=== PATIENT | male | born 1965 | race Caucasian/White ===

== ENCOUNTER 2018-10-31 18:30 | Emergency (ER) | payer MEDICAID, SELFPAY ==
[2018-10-31 18:31] VITALS: BP 158/100; PULSE 99; RESP 16; TEMP 37.1; O2SAT 97; BMI 27.3
--- NOTE | 2018-10-31 18:47 | CT_ITS ---
STUDY: CT ABDOMEN AND PELVIS WITHOUT CONTRAST REASON FOR EXAM: Male, 52 years old. Left lower quadrant pain x2 days RADIATION DOSAGE (If Supplied By Facility): CTDIvol = ( 14.40 ) mGy, DLP = ( 684.97 ) mGycm TECHNIQUE: Transaxial images were obtained from the dome of the diaphragm to the symphysis pubis without oral contrast, and without intravenous contrast. Sagittal and coronal images were reconstructed. Individualized dose optimization techniques were used for this CT. COMPARISON: None. FINDINGS: There are mild fibrotic and/or atelectatic changes of the right lung base. The visualized portions of the heart are within normal limits. Normal liver. The gallbladder is contracted. Normal spleen. Normal pancreas. Normal bilateral adrenal glands. Normal right kidney. Normal left kidney. Normal visualized stomach. Normal small intestine. There is mild sigmoid diverticulosis. There is wall thickening of the proximal sigmoid. There is perisigmoidal fatty stranding consistent with diverticulitis. No abnormal fluid collection or extraluminal gas is seen in the region. The appendix is visualized and appears normal. Normal abdominal aorta. Normal inferior vena cava. Normal retroperitoneum. Normal urinary bladder. Prostatic calcifications are present. There is a small umbilical hernia containing fat. Normal osseous structures. CT/Abdomen/Pelvis without Cont IMPRESSION: Mild sigmoid diverticulosis. Wall thickening of the proximal sigmoid. Perisigmoidal fatty stranding consistent with diverticulitis. There is no evidence of abnormal fluid collection or extraluminal gas in the region. Mild fibrotic and/or atelectatic changes of the right lung base. Contracted gallbladder. Prostatic calcifications are present. There is a small fat-containing umbilical hernia. Electronically Signed: Ted Romero MD at 19:42 EDT , Service support ,
[2018-10-31] MEDS: 0.9% Normal Saline 1,000 ML 125 ML IV (19:02)
[2018-10-31 19:10] LABS: Absolute Lymphocyte Count 2.05 X10^3/ul (0.83-4.51); Absolute Neutrophil Count 9.5 X10^3/uL (2.0-7.7); Basophil# 0.03 X10^3/uL; Basophil% 0.2 % (0-1); Eosinophil# 0.23 X10^3/uL; Eosinophils% 1.8 % (0-5); Hematocrit 45.9 % (40-54); Hemoglobin 15.6 g/dl (13.0-16.5); Lymphocyte # 2.05 X10^3/ul (4.0); Lymphocyte % 15.8 % (19-41); Mean Corpuscular Hgb 30.1 pg (27.0-32.0); Mean Corpuscular Volume 88.6 fL (80-94); Mean Platelet Vol. 10.8 fl (6.2-12.0); Monocyte# 1.12 X10^3/uL; Monocyte% 8.6 % (0-10); Neutrophil % 73.2 % (47-70); Platelet Count 140 K/mm3 (150-450); RBC Distribution Width CV 13.5 % (11.6-14.6); Red Blood Count 5.18 M/mm3 (4.6-6.2)
[2018-10-31 19:11] LABS: POSITIVE COUNT NO; POSITIVE DIFFERENTIAL NO; POSITIVE MORPHOLOGY NO
[2018-10-31 19:25] LABS: Anion Gap 5 (5-15); BUN 10 mg/dL (7-18); BUN/Creat Ratio 11.1 RATIO (10-20); Calcium,Total 8.4 mg/dL (8.5-10.1); Chloride 105 mmol/L (98-107); EST Glomerular Filtration Rate 95 mL/min (>60); Est Glom Filt Rate - Afr Amer 115 mL/min (>60); Estimated Creatinine Clearance 104.58 ml/min; Glucose 155 mg/dL (74-106); Sodium Level 138 mmol/L (136-145)
[2018-10-31 19:56] LABS: Bacteria 0 SEEN /hpf (None Seen); Mucous, Urine 0 SEEN /hpf (<or=2+)
[2018-10-31 19:58] LABS: Color, Urine Yellow (Yellow); Glucose, Dipstick Normal (Normal); Ketone-Dipstick Negative (Negative); Leukocyte Esterase-Dipstick 25 /ul (Negative); Nitrite-Dipstick Negative (Negative); Occult Blood-Urine 10 /ul (Negative); Protein-Dipstick 15 mg/dl (Negative); Specific Gravity, Urine 1.015 (1.002-1.030); Urine Bilirubin Dipstick Negative (Negative); Urine Clarity Sl. Cloudy (Clear); Urine Urobilinogen 1 mg/dl (Normal)
[2018-10-31 20:07] LABS: Red Blood Cells-Urine 0-5 SEEN /hpf (0-5); Squamous Epithelial Cells - UA 0-5 SEEN /hpf (0-5); White Blood Cells 0-5 SEEN /hpf (0-5)
--- NOTE | 2018-10-31 20:52 | ED.DCSUM_ITS ---
- ER Visit Summary Date of Service: 10/31/18 Chief Complaint: [Abdominal pain] History of Present Illness: The patient is a 52 M [presents to the emergency department with abdominal pain that started yesterday. Patient states he currently came on gradually. Patient describes it as lower left abdomen. He has had no nausea or vomiting. No diarrhea. Denies any blood in stool or black tarry stool. Patient has not had any fevers. His last bowel movement was earlier today. Patient has history of hypertension but has been noncompliant with medications.] Physical Examination: HEENT-PERRLA, EOMI. Cranial nerves II through XII grossly intact. TMs clear. Mucous membranes moist. No adenopathy. Cardiovascular-regular rate and rhythm without murmur or ectopy Lungs-clear to auscultation, chest wall stable without crepitus or subcu emphysema Abdomen-normoactive bowel sounds, soft. Patient has tenderness over the left lower quadrant with some guarding. There is no rebound, rigidity, cranial signs. Extremities-intact ?4, normal range of motion, normal pulses, atraumatic [] Test Results: [CBC with differential obtained showed a white count of 13, hemoglobin 15.6, hematocrit 45, platelets 140. Chemistries unremarkable. Glucose was 155. Urinalysis was normal. CT flank showed mild sigmoid diverticulitis. No evidence of abscess or perforation.] Emergency Department Course and Treatment: [Patient was medicated with Cipro and Flagyl. He did not want anything for pain.] Treatment Plan: [She will be referred to primary care physician senior process control tech for no doc. Patient will be started Cipro and Flagyl. Patient advised to return if worsening pain, fever, rectal bleeding, or conditions worsen anyway.] Disposition: [Discharged home in stable condition.] Impression: [Acute diverticulitis] This note was generated with [employer] dictation software. It may contain incorrect words, spelling, and punctuation that were not noted in review of the chart prior to signing ED Disposition - Plan for ED Patient: Referrals: Care Physician,No Primary [Primary Care Provider] -
--- NOTE | 2018-10-31 20:54 | ED.DEP ---
ED Disposition - Plan for ED Patient: Instructions: Diverticulitis Prescriptions: Ciprofloxacin [Cipro] 500 mg PO BID #20 tab Prescription Printed metroNIDAZOLE [Flagyl] 500 mg PO Q8H #30 tab Prescription Printed Referrals: Care Physician,Ricarda Primary [Primary Care Provider] - Jeremiah Crowley DO [STAFF PHYSICIAN] - 5-7 Days
[2018-10-31] MEDS: metroNIDAZOLE 500 MG Tablet PO (21:10)
[2018-10-31] MEDS: Ciprofloxacin 250 MG Tablet 500 MG PO (21:10)
[2018-10-31 21:23] VITALS: BP 171/91; PULSE 78; RESP 16; O2SAT 98
== END 2018-10-31 21:24 | disposition home or self-care (01) ==
LOC: ED 19:26
PROVIDERS: Emergency Provider Emergency Medicine
DX: K57.32 Diverticulitis of large intestine without perforation or abscess without bleeding (principal); I10 Essential (primary) hypertension; Z91.14 Patient's other noncompliance with medication regimen; Z72.0 Tobacco use
CPT/HCPCS: 74176; 80048; 81001; 85025; 96360; 96361; 99283; J7030; A4216

== ENCOUNTER 2019-06-17 06:38 | Emergency (ER) | payer MEDICAID, SELFPAY ==
[2019-06-17 06:39] VITALS: BP 195/100; PULSE 75; RESP 16; TEMP 36.5; O2SAT 98
--- NOTE | 2019-06-17 06:54 | ED.DCSUM_ITS ---
- ER Visit Summary Date of Service: 06/17/19 Chief Complaint: Left heel pain History of Present Illness: The patient is a 53 M who presents with pain in his left heel that has been getting progressively worse over the past 4 days. Patient describes the pain is sharp. Patient states the pain began rather s uddenly while he was walking. Patient denies any cracking or popping sensation. Patient denies any paresthesias or weakness. Patient states pain is worse with weightbearing and ambulation. Patient states he has been taking [id number] Advil with no improvement. Patient has not been using any ice but has been keeping his leg elevated. Physical Examination: Vital signs are stable except for an elevated blood pressure of 195/100. Patient is afebrile. Patient is in no acute distress. Musculoskeletal exam reveals tenderness over the plantar aspect of the left heel . There is no edema or ecchymosis. There is no erythema or warmth. There is no tenderness over the plantar fascia. There is no tenderness over the calcaneus. Achilles tendon is intact. Pedal pulses are equal bilaterally. Sensation was intact light touch in all digits. Capillary refill was less than 2 seconds in all digits. Range of motion was slightly limited in dorsiflexion of the ankle secondary to pain. Emergency Department Course and Treatment: I discussed with the patient that I do not feel x-rays are necessary at this time since there is no direct trauma or injury. Patient was instructed to stop taking the Advil. Patient was given a prescription for Naprosyn. Patient was instructed to use ice to the foot and ankle. Patient was instructed to keep the foot and ankle elevated. Patient was instructed to follow-up with a primary care physician. Patient was referred to Dr. Saucedo who is next for unassigned patients. Patient was advised that he does need to be taking his blood pressure medication with his elevated blood pressure. Patient understands and is agreeable with the plan. All questions were answered. Disposition: Discharge home Impression: Left heel pain This note was generated with [employer] dictation software. It may contain incorrect words, spelling, and punctuation that were not noted in review of the chart prior to signing ED Disposition - Plan for ED Patient: Disposition: Home or Assisted Living Diagnosis: Pain of left heel Instructions: Understanding Heel Pain, Plantar Fasciitis Prescriptions: Naproxen [Naprosyn] 500 mg PO BID PRN #20 tab Prescription Printed Referrals: Care Physician,No Primary [Primary Care Provider] - Soila Saucedo MD [STAFF PHYSICIAN] - 5-7 Days
== END 2019-06-17 07:26 | disposition home or self-care (01) ==
PROVIDERS: Emergency Provider Emergency Medicine
DX: M79.672 Pain in left foot (principal); F17.200 Nicotine dependence, unspecified, uncomplicated
CPT/HCPCS: 99282

== ENCOUNTER 2022-06-01 14:29 | Inpatient (IN) | payer MEDICAID, SELFPAY ==
[2022-06-01] VITALS (20 sets, daily range): BP systolic 90–143; BP diastolic 65–116; PULSE 58–116; RESP 14–28; TEMP 35.7–36.8; O2SAT 92–98; BMI 26.9
--- NOTE | 2022-06-01 14:35 | EKG12_ITS ---
Test Reason : CP Blood Pressure : / mmHG Vent. Rate : 055 BPM Atrial Rate : 055 BPM P-R Int : 140 ms QRS Dur : 122 ms QT Int : 410 ms P-R-T Axes : 075 -41 -33 degrees QTc Int : 392 ms Sinus bradycardia Left axis deviation Non-specific intra-ventricular conduction delay ST elevation consider anterolateral injury or acute infarct ACUTE IA / STEMI Abnormal ECG Confirmed by JOSEFINA NAM, MANUEL ([id number]), food editor ANTONINA BUI ([id number]) on 06/03/2022 8:50:28 AM Referred By: Skyler Hahn Confirmed By:LEE HAHN MD
--- NOTE | 2022-06-01 14:35 | NURSING ---
STEMI CALLED [id number]
[2022-06-01] MEDS: Heparin Injection (Vial) 5,000 UNIT/ML VIAL 4000 UNIT IV (14:38)
[2022-06-01] MEDS: TICAGRELOR 90 MG TABLET 180 MG PO (14:38)
--- NOTE | 2022-06-01 14:42 | ED.VIS.CHEST ---
HPI History of Present Illness Chief Complaint: Chest Pain Detail of Chief Complaint: Patient present with chest pain that started prior to arrival in the emerge Informant: patient Onset/Context/Timing Current Severity: Severe Narrative Narrative: Patient presents with chest discomfort as her prior arrival to emergency department. Patient states that he was working when he developed left-sided chest pressure radiating into his abdomen. He feels short of breath. He drove himself to the hospital and then collapsed in triage. They brought him to room 16 I was asked to see him emergently. On arrival he complains of feeling dyspneic with continued chest pain. He is never had symptoms like this before. He has history of hypertension. No recent travel or surgery. No prior heart history. Prior Similar Symptoms: No CVD Risk Factors: Positive for Hypertension PFSH PFSH Home Medications naproxen 500 mg tablet 500 mg PO BID PRN #20 tabs 06/17/19 [Rx Last Taken Unknown] Allergy/AdvReac Type Severity Reaction Status Date / Time Penicillins Allergy Swelling Verified 06/01/22 14:30 Social History Smoking Status: Current every day smoker ROS ROS ED ROS Narrative Sweaty and diaphoretic Review of Systems ROS Unobtainable: other Constitutional Constitutional ED: Reports lethargy; Denies chills, fever(s), sweats or weight loss Eyes Eyes: Denies blurry vision, change in vision or diplopia ENT ENT ED: Denies rhinorrhea or sore throat Cardiovascular Cardiovascular: Reports chest pain; Denies orthopnea or racing heartbeat Respiratory/Chest Respiratory/Chest: Reports dyspnea and dyspnea on exertion; Denies cough, orthopnea or sputum Gastrointestinal Gastrointestinal: Reports nausea; Denies abdominal pain, diarrhea or vomiting Genitourinary Genitourinary ED: Denies dysuria, hematuria or urinary frequency Musculoskeletal Musculoskeletal: Denies arthralgias, back pain, myalgias or neck pain Integumentary Denies abscess, Abrasions or rash Neurologic Neurologic: Denies headache(s) or weakness Psychiatric Psychiatric: Denies anxiety, depression or suicidal thoughts Endocrine Endocrinology: Denies polydipsia, polyphagia or polyuria Hematologic/Lymphatic Hematologic/Lymphatic: Denies easy bleeding, easy bruising or lymphadenopathy Allergic/Immunologic Allergic/Immunologic ED: Denies mouth swelling, tongue swelling or urticaria EXAM Physical Exam Narrative Exam Narrative: Patient pale and diaphoretic. Const Vital Signs: 06/01/22 14:31 06/01/22 14:38 Temperature 96.2 F L Temperature Source Temporal Pulse Rate 58 L Respiratory Rate 16 28 H Blood Pressure 143/116 H 143/116 H Blood Pressure Mean 125 Pulse Ox 92 Oxygen Delivery Method Non-Rebreather Positive well nourished and well developed General Appearance ED: well developed and NAD HEENT Reports TM's clear and moist mucous membranes normocephalic and atraumatic; Negative for trauma or tenderness Tympanic Membrane ED: Yes TM's clear Eyes PERRL and EOMs intact bilaterally General Eye ED: Negative for pale conjunctiva or scleral icterus Neck no lymphadenopathy, supple and no JVD General: Negative for tenderness Chest Wall inspection of chest normal and palpation of chest normal Chest: Negative for tenderness Resp normal respiratory effort and clear to auscultation bilaterally Effort and Inspection: Negative for respiratory distress or pain with movement Auscultation: Negative for rhonchi, wheezes or diminished lung sounds Cardio regular rate, regular rhythm, S1 normal heart sound, S2 normal heart sound and no murmurs Peripheral Pulses: pulses 2+ throughout GI normal to inspection, nondistended, normoactive bowel sounds, soft to palpation, non-tender, non-distended and no masses Back/Spine no CVA tenderness and no thoracic nor lumbar tenderness Extremity normal to inspection General Extremety ED: Negative for edema General Extremity: Negative for edema Neuro oriented x3, CN's II-XII intact bilaterally, no sensory deficits noted and gait normal Sensorium / Orientation: awake, alert, oriented to person, oriented to place and oriented to time Motor Exam: strength 5/5 throughout and strength abnormal Psych mental status grossly normal Skin no rashes or lesions noted and no wounds MDM MDM MDM Narrative Medical decision making narrative: On arrival patient placed on panel monitor placed on oxygen. 2 IVs were started. EKG was immediately obtained which showed an acute ST elevation RI with ST elevation in leads V2 and V3 as well as V4 with reciprocal changes in the inferior leads. I immediately called a STEMI alert and discussed case with general labor who will take patient emergently to the [facility] Director. We ordered aspirin and heparin as well as Brilinta. Patient was given Zofran for nausea and vomiting. I also discussed case with hospitalist who will be consulted on the case as well. Critical Care Time Critical care time (excluding procedures): Including time spent:, Discussing w/Patient &/or Family/Electrical And Instrument Technician, Discussing w/Consultants, Arranging Admission or Transfer and - (10 minutes) Discharge Plan Triage Chief Complaint: Chest Pain ED Provider: Lakhwinder Triplett Dx/Rx/DC Orders Clinical Impression: Acute ST elevation myocardial infarction, History of hypertension Prescriptions: No Action naproxen 500 MG tablet 500 mg PO BID PRN Qty: 20 0RF Primary Care Provider: Care Physician,No Primary Referrals: Care Physician,No Primary [Primary Care Provider] - Disposition Disposition: Acute Care Hospital [facility]
[2022-06-01 14:50] LABS: Absolute Lymphocyte Count 4.51 X10^3/uL (0.83-4.51); Absolute Neutrophil Count 6.4 X10^3/uL (2.0-7.7); Basophil# 0.06 X10^3/uL; Basophil% 0.5 % (0-1); Eosinophil# 0.36 X10^3/uL; Eosinophils% 2.9 % (0-5); Hematocrit 46.4 % (40-54); Hemoglobin 15.1 g/dL (13.0-16.5); Lymphocyte # 4.51 X10^3/ul (0.83-4.51); Lymphocyte % 36.8 % (19-41); Mean Corp Hgb Conc 32.5 g/dL (32-36); Mean Corpuscular Volume 92.2 fL (80-94); Mean Platelet Vol. 10.7 fl (6.2-12.0); Monocyte# 0.83 X10^3/uL; Monocyte% 6.8 % (0-10); NRBC Flagged by Analyzer 0 % (0-5); Neutrophil # 6.42 X10^3/uL (2.7-7.7); Neutrophil % 52.4 % (47-70); POSITIVE MORPHOLOGY YES; Platelet Count 220 K/mm3 (150-450); RBC Distribution Width CV 12.8 % (11.6-14.6); RBC Distribution Width SD 43.3 fl (35.1-43.9); Red Blood Count 5.03 M/mm3 (4.6-6.2); White Blood Count 12.3 K/mm3 (4.4-11.0)
[2022-06-01 14:51] LABS: Differential Indicated SCAN CRITERIA MET
--- NOTE | 2022-06-01 14:55 | NURSING ---
[facility] THEN ICU 5 [facility] ACUTE STEMI
[2022-06-01 14:56] LABS: International Normalized Ratio 1.1; Prothrombin Time (Protime)PT. 13.9 SECONDS (11.7-14.9)
[2022-06-01 14:58] LABS: Partial Thromboplast Time 27.9 Seconds (24.1-36.2)
[2022-06-01 15:03] LABS: Anion Gap 8 (5-15); BUN 11 mg/dL (7-18); BUN/Creat Ratio 11.4 RATIO (10-20); Calcium,Total 8.6 mg/dL (8.5-10.1); Chloride 109 mmol/L (98-107); Creatinine, Serum 0.96 mg/dL (0.70-1.30); EST Glomerular Filtration Rate 86 mL/min (>60); Est Glom Filt Rate - Afr Amer 105 mL/min (>60); Estimated Creatinine Clearance 90.83 ml/min; Glucose 128 mg/dL (74-106); Potassium 3.2 mmol/L (3.5-5.1); Sodium Level 144 mmol/L (136-145); Troponin-I HS 95 pg/mL (3.0-78.0)
[2022-06-01 15:08] LABS: Differential Comment SCANNED; Reactive Lymphocyte 1+
[2022-06-01] MEDS: 0.9% Normal Saline 1,000 ML 150 ML IV (15:08)
--- NOTE | 2022-06-01 15:09 | SUR.HOLD ---
aspirin order not given verbal at bedside with additional medications for pt prior to metallurgical lab technician. carol jerry, rn [id number]
--- NOTE | 2022-06-01 15:30 | CM.ED ---
Social Work Note Referral Source: STEMI alert Referral Reason: emotional support SW met with patient's mother, Selene, at the carpenter labor supervisor. SW introduced herself and role as [facility] Debt Recovery Officer. SW provided emotional support. Selene updated her phone number [phone] and also reported patient has conflict with his sister. Selene reports there is a no contact order between patient's mother, Selene, and patient's sister. SW remains available if other needs arise. Analia Cruz DOORSHAKER, SHARON
[2022-06-01 15:36] LABS: Base Excess -5 mmol/L (-2 to +2); Blood Gas Specimen Type ART; PO2 365 mmHG (75-100); SO2 100 % (95-99); Total Carbon Dioxide 21 mmol/L; pCO2 33.9 mmHg (35-45); pH 7.38 (7.35-7.45)
--- NOTE | 2022-06-01 15:49 | CHAPLAIN ---
Type of Pastoral Visit ___ Initial Visit ___ Follow-up Visit ___ On-call Visit ___ General Patient Visit ___ Spiritual Assessment ___ Family Conference ___ Bereavement _x__ Rapid Response ___ Code Blue ___ Other (describe below) Pastoral Care Referral From ___ Patient ___ Family ___ Nurse ___ Physician ___ Family Court Counsellor ___ Home Health Aid _x__ Other (describe below) Sacrament/Intervention ___ Active listening ___ Anointing ___ Restorationism ___ Bereavement ___ Communion ___ Henny exploration ___ ___ Life review _x__ Prayer ___ Reconciliation ___ Sacrament of Sick _x__ Supportive presence ___ Wedding _x__ Other (describe below) Pastoral Comments responded to stemi alert and patient had already been taken to the field laborer; looked for family members which reportedly a mother was called to come; later found mother of pt in the field laborer waiting room; gave presence and offer of prayer; SW was available to assist pt and family
--- NOTE | 2022-06-01 15:52 | ECHOL_ITS ---
Reason For Study: s/p OK Procedure This was a limited 2D transthoracic echocardiogram. Exam performed portable in patient room. Left Ventricle Normal LV size. Concentric left ventricular hypertrophy. The estimated ejection fraction is 60 %. Mild anterior hypokinesis. Mitral Valve Mild (1+) mitral valve insufficiency. Pericardium/Pleural No pericardial effusion. MMode/2D Measurements & Calculations LVIDd: 3.4 cm IVSd: 1.4 cm LVAd ap4: 21.0 cm2 LVIDs: 2.0 cm LVPWd: 1.4 cm LVLd ap4: 7.8 cm FS: 41.3 % EDV(MOD-sp4): 50.8 ml EDV(sp4-el): 47.7 ml LVAs ap4: 11.2 cm2 LVLs ap4: 6.9 cm ESV(MOD-sp4): 16.3 ml ESV(sp4-el): 15.5 ml EF(MOD-sp4): 67.9 % EF(sp4-el): 67.5 % LVAd ap2: 21.7 cm2 SV(MOD-sp4): 34.5 ml SV(MOD-sp2): 30.3 ml LVLd ap2: 7.6 cm EDV(MOD-sp2): 51.5 ml EDV(sp2-el): 52.7 ml LVAs ap2: 12.3 cm2 LVLs ap2: 6.0 cm ESV(MOD-sp2): 21.1 ml ESV(sp2-el): 21.6 ml EF(MOD-sp2): 58.9 % SV(sp4-el): 32.2 ml ECHO/Echo, Limited Study Interpretation Summary Limited study done in the cath lab radiology technician due to hypotension to r/o mechanical complic ations of OK The estimated ejection fraction is 60 %. Mild (1+) mitral valve insufficiency. Ordering Physician: Skyler Hahn Referring Physician: Skyler Hahn Performed By: Rosa Abdalla, RDCS, RVT
--- NOTE | 2022-06-01 16:30 | EKG12_ITS ---
Test Reason : POST STEMI Blood Pressure : / mmHG Vent. Rate : 094 BPM Atrial Rate : 070 BPM P-R Int : 000 ms QRS Dur : 126 ms QT Int : 384 ms P-R-T Axes : 000 -59 096 degrees QTc Int : 480 ms Atrial fibrillation Left axis deviation Non-specific intra-ventricular conduction block Marked ST abnormality, possible anterior subendocardial injury Abnormal ECG When compared with ECG of 01-JUN-2022 14:29, MANUAL COMPARISON REQUIRED, DATA IS UNCONFIRMED Confirmed by JOSEFINA NAM, MANUEL ([id number]), features editor ANTONINA BUI ([id number]) on 06/03/2022 9:09:08 AM Referred By: Skyler Hahn Confirmed By:LEE HAHN MD
--- NOTE | 2022-06-01 16:44 | PCM.CONS.C ---
Assessment & Plan Assessment/Plan (1) Acute ST elevation myocardial infarction: PLAN: Patient had 100% occlusion of the left main that was treated with thrombectomy and drug-eluting stent placement. We will keep the patient on Integrilin overnight. We will try to wean him off Levophed. We will keep him on aspirin, Brilinta, statin. No beta-germán or AIRAM inhibitor at this time because of the hypotension requiring Levophed. This can be started once his blood pressure can tolerate. HPI Consult Data Date of Consult: 06/01/22 HPI Narrative Reason for Consultation: stemi HPI Narrative: MERCED SANTIAGO, is a 56 M who presents with chest pain. Patient drove himself to the emergency room and in the triage area apparently collapsed. He was found to have anterior ST elevation on the EKG and a STEMI alert was called. He was brought emergently to the cardiac [employer] and coronary angiography was performed. This revealed occluded distal left main that was treated with thrombectomy and drug-eluting stent placement. Patient feels much better at the end of the procedure but still had shortness of breath. He had received about 2 L of IV fluids from the time he came to the emergency room. He was given 40 mg IV Lasix in the [employer]. His blood pressure is on the low side and he was started on Levophed. Overall patient does doing significantly better compared to how he was doing when he arrived to the emergency room. He did throw up in the emergency room after receiving Brilinta and he was reloaded with Brilinta in the [employer]. Review of systems: All systems reviewed. All else is negative except in HPI PFSH Medical History Myocardial infarct Smoker Home Medications naproxen 500 mg tablet 500 mg PO BID PRN #20 tabs 06/17/19 [Rx Last Taken Unknown] Allergy/AdvReac Type Severity Reaction Status Date / Time Penicillins Allergy Swelling Verified 06/01/22 14:30 Social History Smoking Status: Current every day smoker tobacco type: cigarettes Physical Exam Const alert and oriented x3 HEENT normocephalic Eyes no scleral icterus Resp normal respiratory effort Cardio regular rate Skin no rashes or lesions noted Psych mental status grossly normal Risk Stratification Risk Stratification Applicable: No Charges/Coding Visit Charges Inpatient E&M: 07166 Init Hosp L2 Objective Data Vital Signs: Vital Signs Temp Pulse Resp BP Pulse Ox O2 Del Method O2 Flow Rate 96.2 F L 58 L 28 H 143/116 H 94 Non-Rebreather 15 06/01/22 15:11 06/01/22 15:11 06/01/22 15:11 06/01/22 15:11 06/01/22 15:11 06/01/22 15:11 06/01/22 15:11 FiO2 100 06/01/22 15:11 Oxygen Flow Rate (L/min) 15 Oxygen Delivery Method Non-Rebreather Weight: 188 lb 0.869 oz Body Mass Index (BMI) 26.9 Lab / Micro Data Result Diagrams: 06/01/22 14:30 06/01/22 14:30 Labs: Laboratory Results - last 24 hr 06/01/22 14:30: WBC 12.3 H, RBC 5.03, Hgb 15.1, Hct 46.4, MCV 92.2, MCH 30.0, MCHC 32.5, RDW Std Deviation 43.3, RDW Coeff of Felix 12.8, Plt Count 220, MPV 10.7, Immature Gran % (Auto) 0.600, Neut % (Auto) 52.4, Lymph % (Auto) 36.8, [place] % (Auto) 6.8, Eos % (Auto) 2.9, Baso % (Auto) 0.5, Absolute Neuts (auto) 6.4, Absolute Lymphs (auto) 4.51, Nucleated RBC % 0, Differential Comment SCANNED, Reactive Lymphocytes 1+ 06/01/22 14:30: PT 13.9, INR 1.1, APTT 27.9 06/01/22 14:30: Sodium 144, Potassium 3.2 L, Chloride 109 H, Carbon Dioxide 27.0, Anion Gap 8, BUN 11, Creatinine 0.96, Estim Creat Clear Calc 90.83, Est GFR (MDRD) Af Amer 105, Est GFR (MDRD) Non-Af 86, BUN/Creatinine Ratio 11.4, Glucose 128 H, Calcium 8.6, Troponin I High Sens 95 H ABG Data ABG results: ABG 06/01/22 15:29 Specimen Type ART pH 7.38 Bicarbonate Actual 20.0 L Total CO2 21 Base Excess -5 L O2 Saturation 100 H ABG pCO2 33.9 L ABG pO2 365 H* Crit Call To/Read Back Yes Cardiology Labs/Tests 06/01/22 14:30: WBC 12.3 H, RBC 5.03, Hgb 15.1, Hct 46.4, MCV 92.2, MCH 30.0, MCHC 32.5, Plt Count 220, MPV 10.7, Immature Gran % (Auto) 0.600, Neut % (Auto) 52.4, Lymph % (Auto) 36.8, [place] % (Auto) 6.8, Eos % (Auto) 2.9, Baso % (Auto) 0.5, Absolute Neuts (auto) 6.4, Nucleated RBC % 0 06/01/22 14:30: PT 13.9, INR 1.1, APTT 27.9 06/01/22 14:30: Sodium 144, Potassium 3.2 L, Chloride 109 H, Carbon Dioxide 27.0, Anion Gap 8, BUN 11, Creatinine 0.96, Est GFR (MDRD) Af Amer 105, Est GFR (MDRD) Non-Af 86, BUN/Creatinine Ratio 11.4, Glucose 128 H, Calcium 8.6 06/01/22 15:29: pH 7.38, Bicarbonate Actual 20.0 L, Base Excess -5 L, O2 Saturation 100 H, ABG pCO2 33.9 L, ABG pO2 365 H* Rhythm: EKG: ECHO: Stress Test: Cardiac Cath: PCI: CT Surgery: Holter monitor: EPS: PPM: CXR: Chest CT Scan:
--- NOTE | 2022-06-01 16:53 | ECHOD_ITS ---
Reason For Study: STEMI Procedure This was a 2D Doppler, Color Flow transthoracic echocardiogram. Exam performed portable in ICU/CCU. Left Ventricle Normal LV size. The estimated ejection fraction is 40 %. Stage 1 diastolic dysfunction. Hypokinesis of the anterior wall, apex and lateral wall. Right Ventricle Normal RV size. Normal systolic function. Atria Normal left atrium. Normal right atrium. No doppler evidence for ASD. Mitral Valve There is no mitral valve stenosis. Trivial mitral valve insufficiency. Tricuspid Valve There is no tricuspid stenosis. Trivial tricuspid valve insufficiency. Unable to estimate RV systolic pressure due to insufficient tricuspid regurgitant envelope. Aortic Valve Trisinus/trileaflet aortic valve. There is no aortic stenosis. No aortic valve insufficiency. Pulmonic Valve There is no pulmonic valvular stenosis. No pulmonic valve insufficiency. Great Vessels Normal aortic root. Pericardium/Pleural No pericardial effusion. MMode/2D Measurements & Calculations LVIDd: 4.1 cm IVSd: 1.4 cm LAV(MOD-bp): 42.6 ml LVIDs: 3.6 cm LVPWd: 1.2 cm LAV(MOD-bp) Indexed: 21.0 ml/m2 RVDd: 3.3 cm FS: 12.1 % LAV(MOD-sp2): 45.5 ml LAV(MOD-sp4): 38.5 ml SV(MOD-sp4): 32.6 ml SV(sp4-el): 33.5 ml LVAd ap4: 29.1 cm2 LVLd ap4: 8.7 cm EDV(MOD-sp4): 79.7 ml EDV(sp4-el): 82.9 ml LVAs ap4: 21.6 cm2 LVLs ap4: 8.1 cm ESV(MOD-sp4): 47.1 ml ESV(sp4-el): 49.4 ml EF(MOD-sp4): 40.9 % EF(sp4-el): 40.5 % LA A4 area: 15.3 cm2 LA dimension(2D): 3.7 cm RA A4 area: 10.8 cm2 Time Measurements MV dec time: 0.11 sec Doppler Measurements & Calculations MV E max henry: 80.6 cm/sec Lat Peak E' Henry: 7.6 cm/sec Med Peak E' Henry: 7.7 cm/sec MV A max henry: 37.1 cm/sec E/E' lat: 10.6 E/E' med: 10.5 MV E/A: 2.2 MV V2 max: 84.9 cm/sec MV dec slope: 771.3 cm/sec2 Ao V2 max: 86.3 cm/sec MV max P.9 mmHg Ao max P.0 mmHg MV V2 mean: 47.8 cm/sec Ao V2 mean: 59.2 cm/sec MV mean P.1 mmHg Ao mean P.6 mmHg MV V2 VTI: 16.1 cm Ao V2 VTI: 15.7 cm AV (velocity ratio): 1.0 LV V1 max: 80.9 cm/sec MR max henry: 425.4 cm/sec PA V2 max: 74.0 cm/sec LV V1 max P.6 mmHg MR max P.4 mmHg LV V1 mean P.6 mmHg LV V1 mean: 59.4 cm/sec LV V1 VTI: 15.8 cm ECHO/Echo Complete Interpretation Summary The estimated ejection fraction is 40 %. Stage 1 diastolic dysfunction. Hypokinesis of the anterior wall, apex and lateral wall. Trivial mitral valve insufficiency. 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 Ordering Physician: Curt Cancino Referring Physician: Skyler Hahn Performed By: Orion Hoffman [facility]
--- NOTE | 2022-06-01 16:53 | HP.PCM.HOS_ITS ---
HPI - General General Date of Admission: 06/01/22 Date of Service: 06/01/22 Chief Complaint: chest pain HPI Narrative MERCED SANTIAGO, is a 56 M who presents with chest pain while at work. Patient drove himself here and while in triage, patient passed out. Sent to the emergency room unit where he was found to have anterior ST elevations. STEMI team was called. In the emergency room, patient was started on heparin, aspirin, ticagrelor. 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 Patient did have some hypotension and was started on norepinephrine. Patient received aspirin, ticagrelor and statin. No beta- blockers nor AIRAM inhibitor is restarted given the hypotension that he had. Patient had a echocardiogram, the results of which are not available at this time. Patient denies any history of cardiac disease. During his chest pain, patient was diaphoretic and nauseated. States that the pain was midsternal and did not radiate. PFSH Medical History Diabetes mellitus, type 2 HTN (hypertension) Myocardial infarct Smoker Home Medications naproxen 500 mg tablet 500 mg PO BID PRN #20 tabs 06/17/19 [Rx Last Taken Unknown] Allergy/AdvReac Type Severity Reaction Status Date / Time Penicillins Allergy Swelling Verified 06/01/22 14:30 Family History (Updated 06/01/22 @ 16:[address] Curt Cancino DO) Father CAD (coronary artery disease) Brother CAD (coronary artery disease) Social History (Updated 06/01/22 @ 16:[address] Curt Cancino DO) Smoking Status: Heavy Smoker (>10/day) alcohol intake: former substance use type: marijuana ROS ROS Narrative Feeling short of breath currently. Feels that he just cannot catch a deep breath. All review of systems were negative except as mentioned above in the history of present illness and the other review of systems. Vital Signs Vital Signs Vital Signs: 06/01/22 14:31 06/01/22 14:38 06/01/22 15:03 Temperature 35.7 C L Temperature Source Temporal Pulse Rate 58 L Respiratory Rate 16 28 H Respiratory Effort Normal Blood Pressure 143/116 H 143/116 H Blood Pressure Mean 125 Pulse Ox 92 Oxygen Delivery Method Non-Rebreather Oxygen Flow Rate (L/min) Fraction of Inspired Oxygen (FIO2) 06/01/22 15:05 06/01/22 15:11 Temperature 35.7 C L Temperature Source Temporal Pulse Rate 58 L Respiratory Rate 28 H Respiratory Effort Blood Pressure 143/116 H Blood Pressure Mean 125 Pulse Ox 93 94 Oxygen Delivery Method Non-Rebreather Non-Rebreather Oxygen Flow Rate (L/min) 15 Fraction of Inspired Oxygen (FIO2) 100 Weight Weight: 85.3 kg Body Mass Index (BMI) 26.9 Physical Exam Const alert and no apparent distress Constitutional Narrative: Anxious. No respiratory stress. No conversational dyspnea. Resp normal respiratory effort, no retractions, no use of accessory muscles and clear to auscultation bilaterally Cardio regular rate, regular rhythm, S1 normal heart sound and S2 normal heart sound GI normal to inspection, nondistended, normoactive bowel sounds, soft to palpation, non-tender and non-distended Extremity normal to inspection and full ROM Neuro moves all extremities and no focal motor deficits Psych Mood & Affect: anxious Results Lab / Micro Data Attestation: I reviewed the patient's lab results. Result Diagrams: 06/01/22 14:30 06/01/22 14:30 Labs: Laboratory Results - last 24 hr 06/01/22 14:30: WBC 12.3 H, RBC 5.03, Hgb 15.1, Hct 46.4, MCV 92.2, MCH 30.0, MCHC 32.5, RDW Std Deviation 43.3, RDW Coeff of Felix 12.8, Plt Count 220, MPV 10.7, Immature Gran % (Auto) 0.600, Neut % (Auto) 52.4, Lymph % (Auto) 36.8, Newton % (Auto) 6.8, Eos % (Auto) 2.9, Baso % (Auto) 0.5, Absolute Neuts (auto) 6.4, Absolute Lymphs (auto) 4.51, Nucleated RBC % 0, Differential Comment SCANNED, Reactive Lymphocytes 1+ 06/01/22 14:30: PT 13.9, INR 1.1, APTT 27.9 06/01/22 14:30: Sodium 144, Potassium 3.2 L, Chloride 109 H, Carbon Dioxide 27.0, Anion Gap 8, BUN 11, Creatinine 0.96, Estim Creat Clear Calc 90.83, Est GFR (MDRD) Af Amer 105, Est GFR (MDRD) Non-Af 86, BUN/Creatinine Ratio 11.4, Glucose 128 H, Calcium 8.6, Troponin I High Sens 95 H ABG Data ABG results: ABG 06/01/22 15:29 Specimen Type ART pH 7.38 Bicarbonate Actual 20.0 L Total CO2 21 Base Excess -5 L O2 Saturation 100 H ABG pCO2 33.9 L ABG pO2 365 H* Crit Call To/Read Back Yes EKG Initial EKG: Attestation: I personally reviewed and interpreted this EKG as follows: Prior EKG tracings: available for review EKG Rhythm Intrepretation: Sinus Rhythm (Anterior as elevations with the reciprocal changes in inferior leads) Follow-up EKG: Attestation: I personally reviewed and interpreted this EKG as follows: Prior EKG tracings: available for review EKG Rhythm Intrepretation: Sinus Rhythm (Improvement over the anterior asked elevations but still having the reciprocal changes inferior leads) Assessment & Plan Assessment/Plan (1) Acute ST elevation myocardial infarction: PLAN: Status post stent to the left main with thrombectomy Discussed with cardiology, patient to continue with aspirin, ticagrelor and Integrilin overnight. Check echocardiogram (2) Hypotension: PLAN: May be cardiogenic IV fluids Continue norepinephrine Patient advised that if he does require continued use of pressors or if the has increased requirements, then we would need to place a central line to administer the medications. PLAN: Plan Chronic conditions * Hypertension: No treatment at this time as patient is actually hypotensive * Diabetes mellitus type 2: Per the patient, he is diet controlled. Check an A1c VTE prophylaxis with SCDs for now. Charges/Coding Visit Charges Inpatient E&M: 59074 Init Hosp L3
--- NOTE | 2022-06-01 17:00 | RAD_ITS ---
EXAM: XR CHEST, 1 VIEW CLINICAL INDICATION: STEMI TECHNIQUE: Frontal view of the chest. This report was created using Skyfiber report generation technology. COMPARISON: None. FINDINGS: LUNGS AND PLEURAL SPACES: Unremarkable. No consolidation or edema. No pneumothorax. No effusion. HEART: Unremarkable. Cardiac silhouette not enlarged. MEDIASTINUM: Central airways and mediastinal contour are unremarkable. BONES/JOINTS: Unremarkable. SOFT TISSUES: Unremarkable. RAD/Chest 1 View (Portable) IMPRESSION: No radiographic evidence of acute cardiopulmonary disease. Electronically Signed: Soham Meneses MD at 17:32 EST ,
--- NOTE | 2022-06-01 17:14 | CL.I_ITS ---
Patient Name: MERCED SANTIAGO Study Date: 06/01/2022 Performing: Jw Hahn MD Ht: 70 inches 177.8 cm : 1965 Wt: 188.3 lbs 85.3 kg Age: 56 Gender: male BSA: 2.03 PROCEDURE(S) PERFORMED DC01-(00005)LHC/COR/LV IC16-(23895/C9606)AMI, YADIRA OR PTCA, ARTERY/GRAFT, SINGLE VESSEL CLINICAL PROFILE AND CO-MORBIDITIES Indications: ACS <= 24 hrs Heart Failure: None Stress/Imaging Stress/Image Study Performed: No CAD Presentations: STEMI. Symptom onset Date/Time: 06/01/22 Time Not Available CONCLUSIONS CAD as described with 100% occlusion of the distal left main. Preserved EF. No significant . Successful thrombectomy and YADIRA to dLM RECOMMENDATIONS DESCRIPTION OF PROCEDURE The patient arrived to the procedure lab. The risks and benefits of the procedure as well as a full description of our services here and lack of surgical backup were fully explained to the patient and/or their significant other prior to the catheterization. The Timeout was completed, verifying the correct patient and procedure. The patient's procedural site was prepped and draped in the usual fashion. Local anesthetic was given subcutaneously to right radial region with Lidocaine 2%. Using a modified Seldinger technique, arterial access was obtained via the right radial artery, a 6Fr sheath was inserted.. Left Coronary Artery selective angiography was performed in multiple views using a 6 Fr. XB 3.0 GUIDE. Right Coronary Artery selective angiography was then performed in multiple views using a 5 Fr. JR 4 catheter. LV to AO pullback pressures were then recorded xb3.0 Guide catheter was inserted and engaged into the LCA. RUNTHROUGH Guide wire was advanced to the LAD. Priority One inserted Pass # 1 Priority One Removed runthrough Guide wire was inserted as a alexis wire BMW Guide wire was advanced to the RAMUS 4.0X8 EMERGE Balloon catheter was inserted OVER RUNTHROUGH Balloon catheter was advanced across lesion in the distal LEFT MAIN PTCA balloon inflated at 6 atms for 8 secs. Angiogram performed post balloon dilatation. Angiogram performed pre stent deployment. 4.0X12 RESOLUTE Drug Eluting stent was inserted. Drug Eluting stent was advanced across the lesion in the LEFT MAIN distal Angiogram performed post stent deployment. Angiogram performed post stent deployment. The arterial sheath was pulled and a TR Band was applied for hemostasis - 11CC AIR CORONARY ANGIOGRAPHY DOMINANCE: Right Dominant LEFT HEART ASSESSMENT Left Ventricular Ejection Fraction: by LV Gram 55 % Normal LV wall motion LEFT MAIN: 100 % Stenosis LEFT ANTERIOR DESCENDING ARTERY: Mild luminal irregularities. Myocardial bridging in mid LAD CIRCUMFLEX ARTERY: Mild luminal irregularities RAMUS: Mild luminal irregularities RIGHT CORONARY ARTERY: Mild luminal irregularities VALVE FINDINGS: No Aortic Valve Stenosis Mitral Valve not assessed INTERVENTION INFORMATION LESION SITE: Left Main (DISTAL) Lesion Complexity: High/C, chronic total occlusion: No, lesion at bifurcation: Yes, thrombus present: Yes, lesion length: 11 mm, culprit lesion: Yes, Previously treated lesion: No Pre Stenosis: 100 % Pre intervention GARETH flow: 0 PROCEDURE: Thrombectomy, Drug Eluting Stent with pre dilatation. Post Stenosis: 0 % Post intervention GARETH flow: 3 Lesion Devices: Cordis 6 Fr XB3.0 100cm Guide Catheter Semaj Sci EMERGE MR 4.00x08 BALLOON Medtronic Resolute La Push RX YADIRA 4.0x12 Terumo Priority One Aspiration Catheter COMPLICATIONS No Complications PROCEDURE MEDICATIONS Oxygen: 15 L/min via non-rebreather mask Brilinta 180 mg PO @ 06/01/2022 16:01:39 Heparin 3000 unit(s) IV 06/01/2022 15:00:27 Heparin 2000 unit(s) IV 06/01/2022 15:15:44 Lasix 40 mg IV 06/01/2022 16:11:14 Nitro 100 mcg IA 06/01/2022 15:26:36 IV Bolus: .9 NaCl 1800 ml total 06/01/2022 15:36:20 SUMMARY OF HEMODYNAMIC DATA Time AIR REST ECG 14:55:37 AO 53/39 (46) SA 15:02:35 AO 77/52 (64) 15:10:44 AO 56/25 (40) 15:31:57 LV 60/26, 30 15:32:14 LV 53/24, 29 15:32:23 LVp 52/25, 29 15:32:29 AOp 54/38 (46) 15:32:36 Signed By Jw Hahn MD On 06/01/2022 17:13:16 Jw Hahn MD
[2022-06-01 17:28] LABS: Hemoglobin 15.9 g/dL (13.0-16.5); Mean Corp Hgb Conc 33.1 g/dL (32-36); Mean Corpuscular Hgb 30.2 pg (27.0-32.0); Mean Corpuscular Volume 91.3 fL (80-94); Mean Platelet Vol. 10.8 fl (6.2-12.0); Platelet Count 289 K/mm3 (150-450); RBC Distribution Width CV 12.9 % (11.6-14.6); RBC Distribution Width SD 43.6 fl (35.1-43.9); Red Blood Count 5.26 M/mm3 (4.6-6.2); White Blood Count 24.6 K/mm3 (4.4-11.0)
[2022-06-01 18:23] LABS: Troponin-I HS 45666 pg/mL (3.0-78.0)
[2022-06-01] MEDS: Atorvastatin Calcium 40 MG Tablet PO (22:05)
[2022-06-01] MEDS: Acetaminophen 500 MG Tablet 1000 MG PO (22:05)
[2022-06-01] MEDS: TICAGRELOR 90 MG TABLET PO (22:05)
[2022-06-01 23:46] LABS: Hematocrit 44.9 % (40-54); Hemoglobin 15.5 g/dL (13.0-16.5); Mean Corp Hgb Conc 34.5 g/dL (32-36); Mean Corpuscular Hgb 30.6 pg (27.0-32.0); Mean Corpuscular Volume 88.6 fL (80-94); Mean Platelet Vol. 10.6 fl (6.2-12.0); Platelet Count 269 K/mm3 (150-450); RBC Distribution Width CV 12.8 % (11.6-14.6); RBC Distribution Width SD 41.5 fl (35.1-43.9); Red Blood Count 5.07 M/mm3 (4.6-6.2); White Blood Count 19.9 K/mm3 (4.4-11.0)
[2022-06-02] VITALS (30 sets, daily range): BP systolic 86–151; BP diastolic 64–121; PULSE 72–123; RESP 12–23; TEMP 36.2–37.3; O2SAT 93–98
[2022-06-02 00:33] LABS: Troponin-I HS > 125000 pg/mL (3.0-78.0)
--- NOTE | 2022-06-02 01:15 | EKG12_ITS ---
Test Reason : AM EKG Blood Pressure : / mmHG Vent. Rate : 105 BPM Atrial Rate : 105 BPM P-R Int : 148 ms QRS Dur : 090 ms QT Int : 326 ms P-R-T Axes : 070 -21 105 degrees QTc Int : 430 ms Sinus tachycardia Septal infarct , age undetermined ST & T wave abnormality, consider lateral ischemia Abnormal ECG When compared with ECG of 02-JUN-2022 05:09, MANUAL COMPARISON REQUIRED, DATA IS UNCONFIRMED Confirmed by JOSEFINA NAM, MANUEL ([id number]), script editor ANTONINA BUI ([id number]) on 06/06/2022 12:41:42 PM Referred By: Skyler Hahn Confirmed By:LEE HAHN MD
[2022-06-02] MEDS: Nitroglycerin (INPATIENT USE) 0.4 MG TAB.SUBL SL ×3 (01:42→02:15)
--- NOTE | 2022-06-02 03:30 | NURSING ---
Pt voiced frustration with hospitalization. Removed BP cuff and took it off again shortly after re-application. Profanity laced complaints about being in the hospital, not being able to sleep, lack of real food, and generally disgruntled. Pt stated that he was going to rip this *expletive* off in reference to monitoring equipment and IVs. This nurse provided encouragement and utilized de-escalation techniques to moderate effect. Will continue to monitor.
[2022-06-02 04:02] LABS: Hematocrit 44.5 % (40-54); Hemoglobin 14.9 g/dL (13.0-16.5); Mean Corp Hgb Conc 33.5 g/dL (32-36); Mean Corpuscular Volume 89.5 fL (80-94); Mean Platelet Vol. 10.8 fl (6.2-12.0); Platelet Count 221 K/mm3 (150-450); RBC Distribution Width CV 12.9 % (11.6-14.6); RBC Distribution Width SD 41.9 fl (35.1-43.9); Red Blood Count 4.97 M/mm3 (4.6-6.2); White Blood Count 17.8 K/mm3 (4.4-11.0)
[2022-06-02 04:40] LABS: AST(SGOT) 1044 U/L (15-37); Alanine Aminotransfer ALT/SGPT 191 U/L (16-61); Albumin, Serum 3.4 g/dL (3.2-5.0); Alkaline Phosphatase 79 U/L (45-117); Anion Gap 7 (5-15); BUN 12 mg/dL (7-18); Calcium,Total 8.1 mg/dL (8.5-10.1); Chloride 109 mmol/L (98-107); Creatinine, Serum 0.86 mg/dL (0.70-1.30); EST Glomerular Filtration Rate 98 mL/min (>60); Est Glom Filt Rate - Afr Amer 119 mL/min (>60); Estimated Creatinine Clearance 101.39 ml/min; Globulin 3.3 g/dL (2.2-4.2); Glucose 155 mg/dL (74-106); Potassium 3.8 mmol/L (3.5-5.1); Protein, Total 6.7 g/dL (6.4-8.2); Sodium Level 143 mmol/L (136-145)
[2022-06-02] MEDS: Metoprolol Tartrate 25 MG Tablet 12.5 MG PO ×2 (04:49→20:47)
[2022-06-02] MEDS: Acetaminophen 500 MG Tablet 1000 MG PO ×3 (06:48→20:49)
--- NOTE | 2022-06-02 07:30 | PCM.PN.HOSP ---
Subjective Subjective Feeling much better this morning, no longer in A-fib. Breathing much better, no further chest pain. Objective Data Objective Data Vital Signs: Vital Signs Temp Pulse Resp BP Pulse Ox O2 Del Method O2 Flow Rate 98.5 F 95 22 H 104/81 H 97 Room Air 2 06/02/22 04:00 06/02/22 06:00 06/02/22 06:00 06/02/22 04:49 06/02/22 06:00 06/02/22 06:00 06/01/22 19:00 FiO2 100 06/01/22 15:11 Oxygen Flow Rate (L/min) 2 Oxygen Delivery Method Room Air Weight: 86.5 kg Body Mass Index (BMI) 26.9 Intake & Output: Intake and Output for Last 24 Hours 05/31/22 06/01/22 06/02/22 23:59 23:59 23:59 Intake Total 1402.73 / 1405.08 110.52 / 110.52 Output Total 3200 / 3200 350 / 350 Balance -1797.27 / -1794.92 -239.48 / -239.48 Lab / Micro Data Result Diagrams: 06/02/22 03:50 06/02/22 03:50 Labs: Laboratory Results - last 24 hr 06/01/22 14:30: WBC 12.3 H, RBC 5.03, Hgb 15.1, Hct 46.4, MCV 92.2, MCH 30.0, MCHC 32.5, RDW Std Deviation 43.3, RDW Coeff of Felix 12.8, Plt Count 220, MPV 10.7, Immature Gran % (Auto) 0.600, Neut % (Auto) 52.4, Lymph % (Auto) 36.8, Butts % (Auto) 6.8, Eos % (Auto) 2.9, Baso % (Auto) 0.5, Absolute Neuts (auto) 6.4, Absolute Lymphs (auto) 4.51, Nucleated RBC % 0, Differential Comment SCANNED, Reactive Lymphocytes 1+ 06/01/22 14:30: PT 13.9, INR 1.1, APTT 27.9 06/01/22 14:30: Sodium 144, Potassium 3.2 L, Chloride 109 H, Carbon Dioxide 27.0, Anion Gap 8, BUN 11, Creatinine 0.96, Estim Creat Clear Calc 90.83, Est GFR (MDRD) Af Amer 105, Est GFR (MDRD) Non-Af 86, BUN/Creatinine Ratio 11.4, Glucose 128 H, Calcium 8.6, Troponin I High Sens 95 H 06/01/22 17:00: WBC 24.6 H, RBC 5.26, Hgb 15.9, Hct 48.0, MCV 91.3, MCH 30.2, MCHC 33.1, RDW Std Deviation 43.6, RDW Coeff of Felix 12.9, Plt Count 289, MPV 10.8 06/01/22 17:00: Troponin I High Sens [id number] H* 06/01/22 23:25: WBC 19.9 H, RBC 5.07, Hgb 15.5, Hct 44.9, MCV 88.6, MCH 30.6, MCHC 34.5, RDW Std Deviation 41.5, RDW Coeff of Felix 12.8, Plt Count 269, MPV 10.6 06/01/22 23:25: Troponin I High Sens > [id number] H* 06/02/22 03:50: WBC 17.8 H, RBC 4.97, Hgb 14.9, Hct 44.5, MCV 89.5, MCH 30.0, MCHC 33.5, RDW Std Deviation 41.9, RDW Coeff of Felix 12.9, Plt Count 221, MPV 10.8 06/02/22 03:50: Sodium 143, Potassium 3.8, Chloride 109 H, Carbon Dioxide 27.0, Anion Gap 7, BUN 12, Creatinine 0.86, Estim Creat Clear Calc 101.39, Est GFR (MDRD) Af Amer 119, Est GFR (MDRD) Non-Af 98, BUN/Creatinine Ratio 14.0, Glucose 155 H, Calcium 8.1 L, Total Bilirubin 1.20 H, AST 1044 H, ALT 191 H, Alkaline Phosphatase 79, Total Protein 6.7, Albumin 3.4, Globulin 3.3, Albumin/Globulin Ratio 1.0 ABG Data ABG results: ABG 06/01/22 15:29 Specimen Type ART pH 7.38 Bicarbonate Actual 20.0 L Total CO2 21 Base Excess -5 L O2 Saturation 100 H ABG pCO2 33.9 L ABG pO2 365 H* Crit Call To/Read Back Yes Radiography Diagnostic Testing: Radiology Impression Chest X-Ray 06/01/22 17:00 IMPRESSION: No radiographic evidence of acute cardiopulmonary disease. Electronically Signed: Soham Meneses MD at 17:32 EST , Physical Exam Narrative General: Alert, oriented, no apparent distress HEENT: Atraumatic, normocephalic Eyes: Anicteric, normal conjunctiva, extraocular movements grossly intact Neck: Supple Respiratory: Clear to auscultation bilaterally, normal respiratory effort Cardiovascular: Regular rate and rhythm GI: Soft, nontender, nondistended Extremities: No edema Musculoskeletal: Moving all extremities Neuro: No overt focal neurological deficits Skin: No rashes appreciated Psych: Cooperative Assessment & Plan Assessment/Plan (1) Acute ST elevation myocardial infarction: PLAN: Plan 56-year-old male with history of hypertension, type 2 diabetes, tobacco use who presented 06/01 with chest pain and was found to have a STEMI and taken emergently to the [facility] and was found to have a 100% occlusion of left main and was treated with thrombectomy as well as drug-eluting stent. He did have some hypotension and was started on norepinephrine. Received aspirin, Brilinta, statin. No beta-germán or AIRAM given the hypotension. #STEMI 100% occlusion left main treated with thrombectomy and drug-eluting stent Aspirin, Brilinta, statin resume beta-germán and AIRAM as possible Echo Cardiology following 22: Continue aspirin, Brilinta, statin. Loss of metoprolol and AIRAM. EF 40% #Hypotension Received 2 L IV fluids Wean Levophed 2/2: Weaned off Levophed #Postop atrial fibrillation Briefly in A-fib while he was on Levophed Levophed weaned and he is back in normal sinus rhythm Discussed with cardiology, no anticoagulation at this time However will need discharged with a 30-day monitor #DVT ppx: Rosana Beckford MD Time spent in the patient's overall evaluation,decision-making process, review of diagnostic data, adjustment of management, discussion with other providers, nursing nursing and ancillary staff involved in patient's care documentation, 30 Minutes Charges/Coding Visit Charges Inpatient E&M: 14940 Subs Hosp L2
[2022-06-02] MEDS: Aspirin E.C. 81 MG Tablet PO (09:07)
[2022-06-02] MEDS: TICAGRELOR 90 MG TABLET PO ×2 (09:07→20:49)
--- NOTE | 2022-06-02 10:00 | EKG12_ITS ---
Test Reason : AM EKG Blood Pressure : / mmHG Vent. Rate : 094 BPM Atrial Rate : 094 BPM P-R Int : 154 ms QRS Dur : 096 ms QT Int : 376 ms P-R-T Axes : 077 066 068 degrees QTc Int : 470 ms Normal sinus rhythm Septal infarct , age undetermined Abnormal ECG When compared with ECG of 02-JUN-2022 01:11, MANUAL COMPARISON REQUIRED, DATA IS UNCONFIRMED Confirmed by JOSEFINA NAM, MANUEL ([id number]), film and video editor ANTONINA BUI ([id number]) on 06/03/2022 9:08:47 AM Referred By: Skyler Hahn Confirmed By:LEE HAHN MD
[2022-06-02 10:26] LABS: Hemoglobin A1c 6.3 % (3.8-5.6)
--- NOTE | 2022-06-02 13:40 | CASEMGMT ---
Addendum entered and electronically signed by Keisha Fontenot RN 06/02/22 16:01: Pt also has a glucometer but states he has not been using this to monitor his blood sugars due to his fingers becoming sore. Pt also mentioned that since his girlfriend moved out a few months ago he has not been as consistent with his monitoring or taking his medications. Pt also states he smokes 1 1/2 PPD but states he plans to cut down on this at discharge. Reinforced this plan with pt. Pt denies any ETOH intake. States he stopped drinking ETOH when he was 52yo. Vinita Fontenot RN CM Original Note: LALA VARGAS DC Planning Assessment: LALA VARGAS to pt's room for initial transition assessment and planning. Pt alert and oriented x 4, agreeable to participating in assessment. LALA VARGAS introduced self and role at [facility]. Pt voiced understanding. Care providers and demographics verified. Admitting dx: STEMI PCP: Dr. Rendon (recently established) Specialists: none Insurance: [facility] Prescription benefit: yes Living Will/HPOA: None LNOK: mother Selene Cruz Living Arrangements: pt lives alone in a 2 story home with a first floor setup. Pt is independent with all ADLS including primary care nurse practitioner. 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 Transportation: pt does not drives. Calls friends to assist with transportation or uses cab or bus services DME: has a shower chair (does not currently use), grab bars in the shower SNF/HHC: denies any previous providers. Plan: Pt plans to return home at discharge with the support of his mother and denies any concerns or needs. Discussed Brilinta and will check pt's co-pay prior to DC. Will continue to follow and assist with any additional dc needs as identified. Vinita Fontenot RN CM
--- NOTE | 2022-06-02 14:00 | CRPHASE1 ---
Patient Communication PHII Cardiac Rehab Discussed with Patient:: Yes Guide to Cardiac Rehab Given to Patient:: Yes Cardiac Rehab Facility Choice List Given to Patient:: Yes Choice Program [facility] PHII:: Communication Given to CR [employer] Confinement System Manager:: Skyler Hahn Phase II Cardiac Rehab:: Yes Sessions:: 36 sessions - 3 days/wk, 12 weeks Cardiac Rehabilitation Info Cardiac Rehabilitation Program Information: Cardiac Rehab The cardiac rehab team at [facility] consists of highly skilled exercise physiologists, nurses, respiratory therapists and physicians working together with you. Our purpose is to help you have a full recovery and achieve the goals you set for yourself. Over the years many of our patients have returned to activities they assumed they would never do again! We can help restore your confidence and motivation to make lifestyle changes that can have a significant impact on your health and quality of life! We can help answer questions and concerns you may have about exercise, lifestyle, medications, diet, stress and anxiety which are common following a hospitalization. WE monitor ECG and vital signs during exercise and discuss your progress with you and report to your physician(s). Cardiac Rehab is proven to help reduce readmissions, improve functional capacity and lower recurrence of problems with your heart. Our Cardiac Rehab program is Certified by the [place] [employer]-Vascular and Pulmonary [employer] (AACVPR) and Accredited by the [place] [employer] through our [facility]. You can contact us at . We invite you to call us with your questions or to get started in our program. If you have other questions or concerns be sure to ask your physician/provider during your follow-up visit. WE look forward to seeing you!
--- NOTE | 2022-06-02 14:02 | CRPH1.INSTRU ---
General Education CAD and cardiac anatomy and function:: Patient communicates acknowledgment, Needs reinforcement Explanation of diagnoses and procedures:: Patient communicates acknowledgment, Needs reinforcement Sign/Symptoms of MA:: Patient communicates acknowledgment, Needs reinforcement Antiplatelet therapy: Patient communicates acknowledgment, Needs reinforcement Proper use of NTG-SL: Patient communicates acknowledgment, Needs reinforcement Emergency procedures and activation of EMS: Patient communicates acknowledgment, Needs reinforcement Compliance of all prescribed medications: Patient communicates acknowledgment, Needs reinforcement Smoking Patient Nicotine/Smoking Risk Factors Are:: Cigarettes Recommendations Include:: Participation in a smoking cessation program Nicotine/Smoking Response Code:: Needs reinforcement Dyslipidemia Recommendations Include:: Lipid profile not available Dyslipidemia Response Code:: Patient communicates acknowledgment, Needs reinforcement Overweight/Obesity Patient Overweight/Obesity Risk Factors Are:: Overweight = 26-29 Recommendations Include:: Weight loss of 5-10%, Reduced calorie diet, Exercise 5-7 times/week Overweight/Obesity:: Patient communicates acknowledgment, Needs reinforcement Hypertension Recommendations Include:: BP <130/80 if diabetic, Decrease/maintain normal body weight, Moderation of ETOH Hypertension:: Patient communicates acknowledgment, Needs reinforcement Heart Disease Patient Heart Disease Risk Factors Are:: Family history of heart disease < 65 years old Recommendations Include:: Educated family members of their risk Heart Disease Response Code:: Patient communicates acknowledgment, Needs reinforcement Diabetes Patient Diabetes Risk Factors Are:: No documented hx of diabetes, Elevated blood sugars Recommendations Include:: Maintain fasting blood sugars 70-110 md/dL, Maintain HgbA1c of 6% or less, Monitor blood sugar as prescribed, Diabetic dietary guidelines, Decrease/maintain body weight Diabetes:: Patient communicates acknowledgment, Needs reinforcement Sedentary Patient Sedentary Risk Factors Are:: Lack of regular exercise Recommendations Include:: Aerobic exercise 5-7 times/week for 20-30 minutes continuously, Benefits of regular exercise, Discussed home walking program, Monitored Outpatient Cardiac Rehab Sedentary Response Code:: Patient communicates acknowledgment, Needs reinforcement Stress Recommendations Include:: Identification of stressors, and assessment of coping skills, Stress management techniques Stress Response Code:: Needs reinforcement
--- NOTE | 2022-06-02 14:43 | PCM.PN.CARD ---
Subjective Subjective Doing much better today. Denies any significant chest pain or shortness of breath. Objective Data Vital Signs: Vital Signs Temp Pulse Resp BP Pulse Ox O2 Del Method O2 Flow Rate 98.0 F 96 21 H 107/82 H 95 Room Air 2 06/02/22 11:00 06/02/22 13:00 06/02/22 13:00 06/02/22 13:00 06/02/22 13:00 06/02/22 13:00 06/01/22 19:00 FiO2 100 06/01/22 15:11 Oxygen Flow Rate (L/min) 2 Oxygen Delivery Method Room Air Weight: 190 lb 11.198 oz Body Mass Index (BMI) 26.9 Intake & Output: Intake and Output for Last 24 Hours 05/31/22 06/01/22 06/02/22 23:59 23:59 23:59 Intake Total 1402.73 / 1405.08 557.49 / 557.49 Output Total 3200 / 3200 350 / 350 Balance -1797.27 / -1794.92 207.49 / 207.49 Lab / Micro Data Result Diagrams: 06/02/22 03:50 06/02/22 03:50 Labs: Laboratory Results - last 24 hr 06/01/22 14:30: WBC 12.3 H, RBC 5.03, Hgb 15.1, Hct 46.4, MCV 92.2, MCH 30.0, MCHC 32.5, RDW Std Deviation 43.3, RDW Coeff of Felix 12.8, Plt Count 220, MPV 10.7, Immature Gran % (Auto) 0.600, Neut % (Auto) 52.4, Lymph % (Auto) 36.8, Craig % (Auto) 6.8, Eos % (Auto) 2.9, Baso % (Auto) 0.5, Absolute Neuts (auto) 6.4, Absolute Lymphs (auto) 4.51, Nucleated RBC % 0, Differential Comment SCANNED, Reactive Lymphocytes 1+ 06/01/22 14:30: PT 13.9, INR 1.1, APTT 27.9 06/01/22 14:30: Sodium 144, Potassium 3.2 L, Chloride 109 H, Carbon Dioxide 27.0, Anion Gap 8, BUN 11, Creatinine 0.96, Estim Creat Clear Calc 90.83, Est GFR (MDRD) Af Amer 105, Est GFR (MDRD) Non-Af 86, BUN/Creatinine Ratio 11.4, Glucose 128 H, Calcium 8.6, Troponin I High Sens 95 H 06/01/22 17:00: WBC 24.6 H, RBC 5.26, Hgb 15.9, Hct 48.0, MCV 91.3, MCH 30.2, MCHC 33.1, RDW Std Deviation 43.6, RDW Coeff of Felix 12.9, Plt Count 289, MPV 10.8 06/01/22 17:00: Troponin I High Sens [id number] H* 06/01/22 23:25: WBC 19.9 H, RBC 5.07, Hgb 15.5, Hct 44.9, MCV 88.6, MCH 30.6, MCHC 34.5, RDW Std Deviation 41.5, RDW Coeff of Felix 12.8, Plt Count 269, MPV 10.6 06/01/22 23:25: Troponin I High Sens > [id number] H* 06/02/22 03:50: WBC 17.8 H, RBC 4.97, Hgb 14.9, Hct 44.5, MCV 89.5, MCH 30.0, MCHC 33.5, RDW Std Deviation 41.9, RDW Coeff of Felix 12.9, Plt Count 221, MPV 10.8 06/02/22 03:50: Sodium 143, Potassium 3.8, Chloride 109 H, Carbon Dioxide 27.0, Anion Gap 7, BUN 12, Creatinine 0.86, Estim Creat Clear Calc 101.39, Est GFR (MDRD) Af Amer 119, Est GFR (MDRD) Non-Af 98, BUN/Creatinine Ratio 14.0, Glucose 155 H, Calcium 8.1 L, Total Bilirubin 1.20 H, AST 1044 H, ALT 191 H, Alkaline Phosphatase 79, Total Protein 6.7, Albumin 3.4, Globulin 3.3, Albumin/Globulin Ratio 1.0 06/02/22 03:50: Hemoglobin A1c 6.3 H ABG Data ABG results: ABG 06/01/22 15:29 Specimen Type ART pH 7.38 Bicarbonate Actual 20.0 L Total CO2 21 Base Excess -5 L O2 Saturation 100 H ABG pCO2 33.9 L ABG pO2 365 H* Crit Call To/Read Back Yes Cardiology Labs/Tests 06/01/22 14:30: WBC 12.3 H, RBC 5.03, Hgb 15.1, Hct 46.4, MCV 92.2, MCH 30.0, MCHC 32.5, Plt Count 220, MPV 10.7, Immature Gran % (Auto) 0.600, Neut % (Auto) 52.4, Lymph % (Auto) 36.8, Craig % (Auto) 6.8, Eos % (Auto) 2.9, Baso % (Auto) 0.5, Absolute Neuts (auto) 6.4, Nucleated RBC % 0 06/01/22 14:30: PT 13.9, INR 1.1, APTT 27.9 06/01/22 14:30: Sodium 144, Potassium 3.2 L, Chloride 109 H, Carbon Dioxide 27.0, Anion Gap 8, BUN 11, Creatinine 0.96, Est GFR (MDRD) Af Amer 105, Est GFR (MDRD) Non-Af 86, BUN/Creatinine Ratio 11.4, Glucose 128 H, Calcium 8.6 06/01/22 15:29: pH 7.38, Bicarbonate Actual 20.0 L, Base Excess -5 L, O2 Saturation 100 H, ABG pCO2 33.9 L, ABG pO2 365 H* 06/01/22 17:00: WBC 24.6 H, RBC 5.26, Hgb 15.9, Hct 48.0, MCV 91.3, MCH 30.2, MCHC 33.1, Plt Count 289, MPV 10.8 06/01/22 23:25: WBC 19.9 H, RBC 5.07, Hgb 15.5, Hct 44.9, MCV 88.6, MCH 30.6, MCHC 34.5, Plt Count 269, MPV 10.6 06/02/22 03:50: WBC 17.8 H, RBC 4.97, Hgb 14.9, Hct 44.5, MCV 89.5, MCH 30.0, MCHC 33.5, Plt Count 221, MPV 10.8 06/02/22 03:50: Sodium 143, Potassium 3.8, Chloride 109 H, Carbon Dioxide 27.0, Anion Gap 7, BUN 12, Creatinine 0.86, Est GFR (MDRD) Af Amer 119, Est GFR (MDRD) Non-Af 98, BUN/Creatinine Ratio 14.0, Glucose 155 H, Calcium 8.1 L, Total Bilirubin 1.20 H 06/02/22 03:50: Hemoglobin A1c 6.3 H Rhythm: EKG: ECHO: Stress Test: Cardiac Cath: PCI: CT Surgery: Holter monitor: EPS: PPM: CXR: Chest CT Scan: Radiography Diagnostic Testing: Radiology Impression Echocardiogram 06/01/22 15:52 Interpretation Summary 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 Mild (1+) mitral valve insufficiency. Ordering Physician: Skyler Hahn Referring Physician: Skyler Hahn Performed By: Rosa Abdalla, RDCS, RVT Echocardiogram 06/01/22 16:53 Interpretation Summary The estimated ejection fraction is 40 %. Stage 1 diastolic dysfunction. Hypokinesis of the anterior wall, apex and lateral wall. Trivial mitral valve insufficiency. Compared to the limited echo in the orthodontic laboratory technician (pt. was on levophed at that time), there is a drop in EF. Ordering Physician: Curt Cancino Referring Physician: Skyler Hahn Performed By: Orion Hoffman, RCS Chest X-Ray 06/01/22 17:00 IMPRESSION: No radiographic evidence of acute cardiopulmonary disease. Electronically Signed: Soham Meneses MD at 17:32 EST , Physical Exam Const alert and oriented x3 HEENT normocephalic Eyes no scleral icterus Resp normal respiratory effort and clear to auscultation bilaterally Cardio regular rate Extremity no pedal edema Psych mental status grossly normal Assessment & Plan Assessment/Plan (1) Acute ST elevation myocardial infarction: PLAN: Doing much better. He is status post drug-eluting stent to the distal left main. Continue aspirin, Brilinta, statin. At the time of discharge his beta-germán can be switched to metoprolol succinate 25 mg p.o. daily. Blood pressure is improving. Will add low-dose AIRAM inhibitor. Echo done today revealed an EF of around 40% which is lower than the EF done when he was on the cath table. At that time he was on Levophed which possibly explains the difference in contractility between the 2 studies. Unlikely that he has had any issues with the stent to cause this discrepancy. His EKG is significantly improved and clinically patient is doing very well. (2) Atrial fibrillation: PLAN: Patient presented with sinus rhythm and then was briefly in A-fib. He was also on Levophed during this time. He is currently in sinus rhythm. I feel that his A-fib has been in the setting of an AR and being on Levophed. He does not need anticoagulation at this time. He could potentially be evaluated with a 30-day event monitor to see if he has other episodes of A-fib. At this time it is reasonable to keep him on aspirin and Brilinta for 1 month and then switch to Plavix if required. (3) Nonsustained ventricular tachycardia: PLAN: In the setting of an acute AR. Beta-germán has been initiated. Charges/Coding Visit Charges Inpatient E&M: 63679 Subs Hosp L2
[2022-06-02] MEDS: Lisinopril 2.5 MG Tablet PO (15:30)
[2022-06-02] MEDS: Atorvastatin Calcium 40 MG Tablet PO (20:49)
[2022-06-03 03:05] VITALS: BP 121/96; PULSE 105; RESP 18; TEMP 37.3; O2SAT 94
[2022-06-03 06:00] LABS: Absolute Lymphocyte Count 1.31 X10^3/uL (0.83-4.51); Absolute Neutrophil Count 11.4 X10^3/uL (2.0-7.7); Basophil# 0.04 X10^3/uL; Basophil% 0.3 % (0-1); Eosinophil# 0.01 X10^3/uL; Eosinophils% 0.1 % (0-5); Hematocrit 44.1 % (40-54); Hemoglobin 14.5 g/dL (13.0-16.5); Lymphocyte # 1.31 X10^3/ul (0.83-4.51); Lymphocyte % 9.3 % (19-41); Mean Corp Hgb Conc 32.9 g/dL (32-36); Mean Corpuscular Hgb 29.7 pg (27.0-32.0); Mean Corpuscular Volume 90.2 fL (80-94); Mean Platelet Vol. 11.5 fl (6.2-12.0); Monocyte# 1.19 X10^3/uL; Monocyte% 8.5 % (0-10); NRBC Flagged by Analyzer 0 % (0-5); Neutrophil # 11.42 X10^3/uL (2.7-7.7); Neutrophil % 81.2 % (47-70); Platelet Count 143 K/mm3 (150-450); RBC Distribution Width CV 12.9 % (11.6-14.6); RBC Distribution Width SD 42.3 fl (35.1-43.9); Red Blood Count 4.89 M/mm3 (4.6-6.2); White Blood Count 14.1 K/mm3 (4.4-11.0)
[2022-06-03 06:32] LABS: Anion Gap 9 (5-15); BUN 13 mg/dL (7-18); BUN/Creat Ratio 18.1 RATIO (10-20); Calcium,Total 8.5 mg/dL (8.5-10.1); Chloride 105 mmol/L (98-107); Creatinine, Serum 0.72 mg/dL (0.70-1.30); EST Glomerular Filtration Rate 121 mL/min (>60); Est Glom Filt Rate - Afr Amer 147 mL/min (>60); Glucose 157 mg/dL (74-106); Potassium 3.3 mmol/L (3.5-5.1); Sodium Level 139 mmol/L (136-145)
[2022-06-03 08:00] VITALS: O2SAT 95
[2022-06-03 09:05] VITALS: BP 125/92; PULSE 103; RESP 20; TEMP 36.3; O2SAT 95
[2022-06-03 09:17] VITALS: BP 125/92; PULSE 103
[2022-06-03] MEDS: Metoprolol Tartrate 25 MG Tablet 12.5 MG PO (09:17)
[2022-06-03] MEDS: Aspirin E.C. 81 MG Tablet PO (09:21)
[2022-06-03] MEDS: Potassium Chloride Oral Tablet 20 MEQ 40 MEQ PO (09:21)
[2022-06-03] MEDS: Lisinopril 2.5 MG Tablet PO (09:21)
[2022-06-03] MEDS: TICAGRELOR 90 MG TABLET PO (09:22)
--- NOTE | 2022-06-03 10:00 | EKG12_ITS ---
Test Reason : CHEST PAIN Blood Pressure : / mmHG Vent. Rate : 101 BPM Atrial Rate : 079 BPM P-R Int : 000 ms QRS Dur : 104 ms QT Int : 360 ms P-R-T Axes : 000 074 033 degrees QTc Int : 466 ms Atrial fibrillation Nonspecific ST abnormality Abnormal ECG When compared with ECG of 01-JUN-2022 16:21, MANUAL COMPARISON REQUIRED, DATA IS UNCONFIRMED Confirmed by RYANN NAM, ALEXSANDER ([id number]), field map editor ANTONINA BUI ([id number]) on 06/07/2022 9:03:36 AM Referred By: Skyler Hahn Confirmed By:ALEXSANDER GARZON MD
--- NOTE | 2022-06-03 11:28 | DCINST_ITS ---
Discharge Instructions Diet Discharge Diet: - (DASH diet) Activity Discharge Activity: Return to Normal Activity Follow Up Care Test Results: Test results from this visit will be discussed in further detail at your follow- up appointment, if applicable. Discharge Plan Admission Admit Date/Time: 06/01/22 16:45 Primary Reason for Your Visit: Chest pain Attending Provider: Zoraida Beckford Primary Care Provider: José Antonio Looney Consulting Providers: Skyler Hahn Instructions Patient Instructions: Heart Attack Dc, Heart Attack Meds Additional Instructions / Restrictions: DISCHARGE INSTRUCTIONS PLEASE READ *Please take this with you to your next doctors appointment* ? It will be very important for you to follow-up with the heart doctor upon discharge. Please call Dr. Hansen's office ([phone]) upon discharge to schedule your hospital follow-up appointment ?You were admitted with a heart attack and had stents placed in your heart to keep the arteries open. Because of this you will have to take several new medications ? For 1 month you will take ticagrelor 90 mg twice daily, please fill this today and take your first dose tonight. You will be provided with a 1 month savings card. After this time you will switch to another medication, clopidogrel, which you will take daily thereafter. The clopidogrel prescription will be sent in to be filled 06/28/2022. As you will take your first dose of Brilinta/ticagrelor tonight that will mean that your last dose would be in the morning and you would not have an evening dose. On that final day do not take the morning Brilinta dose and instead you will switch to clopidogrel starting that. It is extremely important that you take this medication consistently and do not miss doses ? It will be important that you take an aspirin 81 mg daily ? You will be discharged on atorvastatin, a cholesterol medicine, which you will take daily, lisinopril 2.5 mg daily and metoprolol 25 mg daily, all of which are for your heart health. ? All of your prescriptions have been sent to preferred pharmacy on file, [facility] ?Because you had an irregular heartbeat right after your stent you will be sent out on a 30-day heart monitor. ? It is strongly advised that you quit smoking -Please call your primary care provider's office upon discharge to schedule a hospital follow up within 1 week. -For any concerning signs or symptoms please call 911 or proceed to the nearest emergency department Discharge Orders/Prescriptions Prescriptions: New atorvastatin 40 mg Tablet 40 mg PO QHS 30 Days Qty: 30 0RF aspirin 81 mg Tablet,Delayed Release (Dr/Ec) 81 mg PO DAILY 30 Days Qty: 30 0RF lisinopril 2.5 mg Tablet 2.5 mg PO DAILY 30 Days Qty: 30 0RF metoprolol succinate 25 mg capsule,sprinkle,ER 24hr 25 mg PO DAILY 30 Days Qty: 30 0RF clopidogrel 75 mg tablet 75 mg PO DAILY 30 Days Qty: 30 0RF Rx Instructions: To start after 30-day Brilinta prescription. Fill on 06/28/22 Brilinta 90 mg Tablet 90 mg PO BID 30 Days Qty: 60 0RF Discontinued naproxen 500 MG tablet 500 mg PO BID PRN Qty: 20 0RF Other Ambulatory Orders: 30 Day Event Recorder Preventi (Urgent) Timeframe: 1 Day Facility: [facility] - Location: Cardiovascular Services Ordered By: Dr. Zoraida Beckford Referrals / Follow Up: José Miguel Hansen MD [Med Staff - Active Staff] - Within 2 Weeks José Antonio Looney MD [Primary Care Provider] - Within 1 Week Disposition Disposition (needs filled in before D/C Order can be placed): Home, Self Care
--- NOTE | 2022-06-03 11:45 | DS.PCM_ITS ---
Providers Date of Admission: 06/01/22 Date of Discharge: 06/03/22 Primary Care Physician: Dr. José Antonio Looney MD Consultations 06/01/22 16:53 Consult: Cardiology Routine Consulting Provider: Skyler Hahn Reason for Consult: stemi EMERGENT Consult: No MD Notified: Yes Date Notified: 06/01/22 Time Notified: 16:50 Method of Notification: Verbal Reason For Visit: ACUTE ST ELEVATION NH Diagnosis Discharge Diagnosis (1) Acute ST elevation myocardial infarction: Status: Acute Code(s): I21.3 - ST elevation (STEMI) myocardial infarction of unspecified site Plan #STEMI due to left main occlusion #Hypotension after STEMI?resolved #Postop atrial fibrillation?resolved Medications at Discharge Home Medications aspirin 81 mg tablet,delayed release 81 mg PO DAILY 30 days #30 tabs 06/03/22 atorvastatin 40 mg tablet 40 mg PO QHS 30 days #30 tabs 06/03/22 lisinopril 2.5 mg tablet 2.5 mg PO DAILY 30 days #30 tabs 06/03/22 metoprolol succinate 25 mg capsule sprinkle, ext. release 24 hr 25 mg PO DAILY 30 days #30 ea 06/03/22 ticagrelor 90 mg tablet (Brilinta) 90 mg PO BID 30 days #60 tabs 06/03/22 Hospital Course Procedures - (Cardiac cath with LAD occlusion with thrombectomy and stent, echocardiogram) Summary of Care Provided Minutes Spent on Discharge: 31 Hospital Course: 56-year-old male with history of hypertension, type 2 diabetes, tobacco use who presented 06/01 with chest pain and was found to have a STEMI and taken emergently to the [facility] and was found to have a 100% occlusion of left main and was treated with thrombectomy as well as drug-eluting stent. He did have some hypotension and was started on norepinephrine. Received aspirin, Brilinta, statin. No beta-sahil or JACOB given the hypotension. He was sent to the ICU and was in A-fib while on norepinephrine but blood pressure did not improve and symptoms improved. Once blood pressure was better and norepinephrine was off he was no longer in A-fib. He then had the beta-sahil and JACOB added and was continued on aspirin and Brilinta and did well. On day of discharge had no chest pain or shortness of breath. Discussed with cardiology and no anticoagulation at this time but he will be discharged with a 30-day monitor. Discharge instructions as follows: ? It will be very important for you to follow-up with the heart doctor upon discharge.? Please call Dr. Hansen's office ([phone]) upon discharge to schedule your hospital follow-up appointment ?You were admitted with a heart attack and had stents placed in your heart to keep the arteries open.? Because of this you will have to take several new medications ? For 1 month you will take ticagrelor 90 mg twice daily, please fill this today and take your first dose tonight.? You will be provided with a 1 month savings card.? After this time you will switch to another medication, clopidogrel, which you will take daily thereafter.? The clopidogrel prescription will be sent in to be filled 06/28/2022.? As you will take your first dose of Brilinta/ticagrelor tonight that will mean that your last dose would be in the morning and you would not have an evening dose.? On that final day do not take the morning Brilinta dose and instead you will switch to clopidogrel starting that.? It is extremely important that you take this medication consistently and do not miss doses ? It will be important that you take an aspirin 81 mg daily ? You will be discharged on atorvastatin, a cholesterol medicine, which you will take daily, lisinopril 2.5 mg daily and metoprolol 25 mg daily, all of which are for your heart health. ? All of your prescriptions have been sent to preferred pharmacy on file, [facility] [address] ?Because you had an irregular heartbeat right after your stent you will be sent out on a 30-day heart monitor. ? It is strongly advised that you quit smoking -Please call your primary care provider's office upon discharge to schedule a hospital follow up within 1 week. -For any concerning signs or symptoms please call 911 or proceed to the nearest emergency department Physical Exam Narrative General: Alert, oriented, no apparent distress HEENT: Atraumatic, normocephalic Eyes: Anicteric, normal conjunctiva, extraocular movements grossly intact Neck: Supple Respiratory: Clear to auscultation bilaterally, normal respiratory effort Cardiovascular: Regular rate and rhythm GI: Soft, nontender, nondistended Extremities: No edema Musculoskeletal: Moving all extremities Neuro: No overt focal neurological deficits Skin: No rashes appreciated Psych: Cooperative Weight / BMI Weight Weight: 83.4 kg Body Mass Index (BMI) 26.9 ABG / Lab / Microbiology Data Result Diagrams: 06/03/22 04:35 06/03/22 04:35 Laboratory: Laboratory Results - last 24 hr 06/03/22 04:35: WBC 14.1 H, RBC 4.89, Hgb 14.5, Hct 44.1, MCV 90.2, MCH 29.7, MCHC 32.9, RDW Std Deviation 42.3, RDW Coeff of Felix 12.9, Plt Count 143 L, MPV 11.5, Immature Gran % (Auto) 0.600, Neut % (Auto) 81.2 H, Lymph % (Auto) 9.3 L, Waller % (Auto) 8.5, Eos % (Auto) 0.1, Baso % (Auto) 0.3, Absolute Neuts (auto) 11.4 H, Absolute Lymphs (auto) 1.31, Nucleated RBC % 0 06/03/22 04:35: Sodium 139, Potassium 3.3 L, Chloride 105, Carbon Dioxide 25.0, Anion Gap 9, BUN 13, Creatinine 0.72, Estim Creat Clear Calc 121.10, Est GFR (MDRD) Af Amer 147, Est GFR (MDRD) Non-Af 121, BUN/Creatinine Ratio 18.1, Glucose 157 H, Calcium 8.5 Radiography Diagnostic Testing: Radiology Impression Echocardiogram 06/01/22 15:52 Interpretation Summary 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 Mild (1+) mitral valve insufficiency. Ordering Physician: Skyler Hahn Referring Physician: Skyler Hahn Performed By: Rosa Abdalla, ANTONCS, RVT Echocardiogram 06/01/22 16:53 Interpretation Summary The estimated ejection fraction is 40 %. Stage 1 diastolic dysfunction. Hypokinesis of the anterior wall, apex and lateral wall. Trivial mitral valve insufficiency. Compared to the limited echo in the laborer drying department (pt. was on levophed at that time), there is a drop in EF. Ordering Physician: Curt Cancino Referring Physician: Skyler Hahn Performed By: Orion Hoffman RCS D/C Instructions Discharge Diet: - (DASH diet) Meaningful Use Info Meaningful Use Diagnoses (Choose all that apply): AMI AMI/Post PCI/Angioplasty Aspirin given w/in 24hrs of arrival?: Yes ASA at discharge?: Yes Antiplatelet Therapy at Discharge:: Yes Statins at discharge?: Yes Jacob/ARB at discharge?: Yes Beta Sahil at discharge?: Yes Done w/ Acute NH measure.: Yes Documented LVEF (%): 40 Discharge Plan Admission Admit Date/Time: 06/01/22 16:45 Primary Reason for Your Visit: Chest pain Attending Provider: Zoraida Beckford Primary Care Provider: José Antonio Looney Consulting Providers: Skyler Hahn Instructions Patient Instructions: Heart Attack Dc, Heart Attack Meds Additional Instructions / Restrictions: DISCHARGE INSTRUCTIONS PLEASE READ *Please take this with you to your next doctors appointment* ? It will be very important for you to follow-up with the heart doctor upon discharge. Please call Dr. Hansen's office ([phone]) upon discharge to schedule your hospital follow-up appointment ?You were admitted with a heart attack and had stents placed in your heart to keep the arteries open. Because of this you will have to take several new medications ?You will be discharged on ticagrelor twice daily, it is extremely important that you take this medication consistently and do not miss doses. As your insurance covers this medication you will not need to be switched to clopidogrel after 30 days. You will remain on ticagrelor twice daily ? It will be important that you take an aspirin 81 mg daily ? You will be discharged on atorvastatin, a cholesterol medicine, which you will take daily, lisinopril 2.5 mg daily and metoprolol 25 mg daily, all of which are for your heart health. ? All of your prescriptions have been sent to [facility] pharmacy on file, [facility] on [address] ?Because you had an irregular heartbeat right after your stent you will be sent out on a 30-day heart monitor. ? It is strongly advised that you quit smoking -Please call your primary care provider's office upon discharge to schedule a hospital follow up within 1 week. -For any concerning signs or symptoms please call 911 or proceed to the nearest emergency department Discharge Orders/Prescriptions Prescriptions: New atorvastatin 40 mg Tablet 40 mg PO QHS 30 Days Qty: 30 0RF aspirin 81 mg Tablet,Delayed Release (Dr/Ec) 81 mg PO DAILY 30 Days Qty: 30 0RF lisinopril 2.5 mg Tablet 2.5 mg PO DAILY 30 Days Qty: 30 0RF metoprolol succinate 25 mg capsule,sprinkle,ER 24hr 25 mg PO DAILY 30 Days Qty: 30 0RF Brilinta 90 mg Tablet 90 mg PO BID 30 Days Qty: 60 0RF Discontinued naproxen 500 MG tablet 500 mg PO BID PRN Qty: 20 0RF Other Ambulatory Orders: 30 Day Event Recorder Preventi (Urgent) Timeframe: 1 Day Facility: [facility] - Location: Cardiovascular Services Ordered By: Dr. Zoraida Beckford Referrals / Follow Up: José Miguel Hansen MD [Med Staff - Active Staff] - Within 2 Weeks José Antonio Looney MD [Primary Care Provider] - Within 1 Week Disposition Disposition (needs filled in before D/C Order can be placed): Home, Self Care Charges/Coding Visit Charges Inpatient E&M: 20017 Disch Hosp >30min
--- NOTE | 2022-06-03 12:12 | DCINST_ITS ---
Discharge Instructions Diet Discharge Diet: - (DASH diet) Follow Up Care Test Results: Test results from this visit will be discussed in further detail at your follow- up appointment, if applicable. Discharge Plan Admission Admit Date/Time: 06/01/22 16:45 Primary Reason for Your Visit: Chest pain Attending Provider: Zoraida Beckfodr Primary Care Provider: José Antonio Looney Consulting Providers: Skyler Hahn Instructions Additional Instructions / Restrictions: DISCHARGE INSTRUCTIONS PLEASE READ *Please take this with you to your next doctors appointment* ? It will be very important for you to follow-up with the heart doctor upon discharge. Please call Dr. Hansen's office ([phone]) upon discharge to [facility] your hospital follow-up appointment ?You were admitted with a heart attack and had stents placed in your heart to keep the arteries open. Because of this you will have to take several new medic ations ?You will be discharged on ticagrelor twice daily, it is extremely important that you take this medication consistently and do not miss doses. As your insurance covers this medication you will not need to be switched to clopidogrel after 30 days. You will remain on ticagrelor twice daily ? It will be important that you take an aspirin 81 mg daily ? You will be discharged on atorvastatin, a cholesterol medicine, which you will take daily, lisinopril 2.5 mg daily and metoprolol 25 mg daily, all of which are for your heart health. ? All of your prescriptions have been sent to preferred pharmacy on file, [facility] ?Because you had an irregular heartbeat right after your stent you will be sent out on a 30-day heart monitor. ? It is strongly advised that you quit smoking -Please call your primary care provider's office upon discharge to schedule a hospital follow up within 1 week. -For any concerning signs or symptoms please call 911 or proceed to the nearest emergency department Discharge Orders/Prescriptions Prescriptions: New atorvastatin 40 mg Tablet 40 mg PO QHS 30 Days Qty: 30 0RF aspirin 81 mg Tablet,Delayed Release (Dr/Ec) 81 mg PO DAILY 30 Days Qty: 30 0RF lisinopril 2.5 mg Tablet 2.5 mg PO DAILY 30 Days Qty: 30 0RF metoprolol succinate 25 mg capsule,sprinkle,ER 24hr 25 mg PO DAILY 30 Days Qty: 30 0RF Brilinta 90 mg Tablet 90 mg PO BID 30 Days Qty: 60 0RF Discontinued naproxen 500 MG tablet 500 mg PO BID PRN Qty: 20 0RF Other Ambulatory Orders: 30 Day Event [employer] (Urgent) Timeframe: 1 Day Facility: [facility] - Location: Cardiovascular Services Ordered By: Dr. Zoraida Beckford Referrals / Follow Up: José Miguel Hansen MD [Med Staff - Active Staff] - Within 2 Weeks José Antonio Looney MD [Primary Care Provider] - Within 1 Week Disposition Disposition (needs filled in before D/C Order can be placed): Home, Self Care
--- NOTE | 2022-06-03 12:15 | CASEMGMT ---
Patient will be discharging on Brilinta. LALA VARGAS called [facility] to verify cost. Per pharmacist, Brilinta in covered at 100%. LALA VARGAS updated hospitalist and patient regarding coverage at 100%. Patient had no further questions or concerns at this time.
--- NOTE | 2022-06-03 14:43 | PHA.DC.MR ---
Pharmacy Service has performed discharge medication reconciliation for this patient. The patient's discharge medication list was reviewed for discrepancies and discrepancies were resolved. Medication education papers prepared but patient was discharged before I was able to certified alcohol and drug counselor. Home Medications aspirin 81 mg tablet,delayed release 81 mg PO DAILY 30 days #30 tabs 06/03/22 atorvastatin 40 mg tablet 40 mg PO QHS 30 days #30 tabs 06/03/22 lisinopril 2.5 mg tablet 2.5 mg PO DAILY 30 days #30 tabs 06/03/22 metoprolol succinate 25 mg capsule sprinkle, ext. release 24 hr 25 mg PO DAILY 30 days #30 ea 06/03/22 ticagrelor 90 mg tablet (Brilinta) 90 mg PO BID 30 days #60 tabs 06/03/22
== END 2022-06-03 14:16 | disposition home or self-care (01) | DRG 174 ==
LOC: ED 14:46 → ICU 15:10 → PCU 06-02 17:16
PROVIDERS: Admitting Provider Specialist; Emergency Provider Emergency Medicine; PCP Internal Medicine; Referring Provider Specialist; Visit Provider Internal Medicine
DX: I21.3 ST elevation (STEMI) myocardial infarction of unspecified site (principal); E11.9 Type 2 diabetes mellitus without complications; I48.91 Unspecified atrial fibrillation; F12.90 Cannabis use, unspecified, uncomplicated; I10 Essential (primary) hypertension; F17.210 Nicotine dependence, cigarettes, uncomplicated; I95.81 Postprocedural hypotension; I97.89 Other postprocedural complications and disorders of the circulatory system, not elsewhere classified; Z79.82 Long term (current) use of aspirin; Z79.02 Long term (current) use of antithrombotics/antiplatelets
CPT/HCPCS: 36415; 71045; 80048; 80053; 82803; 83036; 84484; 85025; 85027; 85610; 85730; 92941; 93005; 93306; 93308; 93458; 97802; 99284; C1757; J7030; J7040; J7050; A4216; C1769; C1874; C1887; C1894; C9606; J1327; J1940; J2405; Q9967

== ENCOUNTER 2022-07-07 18:03 | Emergency (ER) | payer MEDICAID, SELFPAY ==
[2022-07-07 18:05] VITALS: BP 140/82; PULSE 89; RESP 16; TEMP 36.9; O2SAT 99; BMI 25.4
--- NOTE | 2022-07-07 18:36 | EDS_ITS ---
HPI History of Present Illness Chief Complaint: General Illness Informant: patient and spouse/S.O. Narrative Narrative: Patient woke up today with discomfort in both of his thighs, buttocks, and his left upper back, pointing to the rhomboids area. He said he was admitted for an MRI this past month, he has been resting a lot. Yesterday, he went for a walk with his spouse for maybe 20 minutes, although he states it was not taxing it was the first amount of activity he really has done since he has been out of the hospital, of any significance. He denies any swelling. Denies any chest discomfort, dyspnea, denies any lightheadedness or near syncope/syncope although he has felt tired. Of note he has been compliant with his medications which include metoprolol succinate, he was on the generic once daily, and he was switched over to Kapspargo sprinkle (brand name metoprolol succinate), same dose, 1 week ago. He has checked his pulse a couple times with the help of his spouse, at 1 point he was around 60 another point he was higher than that but never felt lightheaded or near syncopal. PFSH PFSH Medical History Acute ST elevation myocardial infarction Atherosclerosis of coronary artery of [place] heart without angina pectoris Atrial fibrillation Diabetes mellitus, type 2 Essential hypertension Myocardial infarct Nonsustained ventricular tachycardia Smoker Home Medications aspirin 81 mg tablet,delayed release 81 mg PO DAILY 30 days #30 tabs 06/03/22 [Rx Last Taken Unknown] atorvastatin 40 mg tablet 40 mg PO QHS 30 days #30 tabs 06/03/22 [Rx Last Taken Unknown] lisinopril 2.5 mg tablet 2.5 mg PO DAILY 30 days #30 tabs 06/03/22 [Rx Last Taken Unknown] ticagrelor 90 mg tablet (Brilinta) 90 mg PO BID 30 days #60 tabs 06/03/22 [Rx Last Taken Unknown] metoprolol succinate 25 mg capsule sprinkle, ext. release 24 hr (Kapspargo Sprinkle) 25 mg PO DAILY 07/07/22 [History Last Taken Unknown] Allergy/AdvReac Type Severity Reaction Status Date / Time Penicillins Allergy Swelling Verified 07/07/22 18:07 Family History (Updated 06/01/22 @ 16:[address] Curt Cancino DO) Father CAD (coronary artery disease) Brother CAD (coronary artery disease) Surgical History (Updated 06/06/22 @ 11:36 by Francesca Strong) History of coronary artery stent placement (06/01/22) Social History Smoking Status: Heavy Smoker (>10/day) alcohol intake: former substance use type: marijuana ROS ROS ED Constitutional Constitutional ED: Reports fatigue; Denies chills or fever(s) Eyes Eyes: Denies change in vision or diplopia ENT ENT ED: Denies rhinorrhea or sore throat Cardiovascular Cardiovascular: Denies chest pain, leg edema, lightheadedness or palpitations Respiratory/Chest Respiratory/Chest: Denies cough or dyspnea Gastrointestinal Gastrointestinal: Denies abdominal pain, diarrhea, nausea or vomiting Genitourinary Genitourinary ED: Denies dysuria or hematuria Musculoskeletal Musculoskeletal: Reports back pain and extremity pain; Denies neck pain Integumentary Denies abscess or rash Neurologic Neurologic: Denies headache(s), paresthesias or weakness Psychiatric Psychiatric: Denies anxiety or suicidal thoughts EXAM Physical Exam Const Vital Signs: 07/07/22 18:05 07/07/22 18:22 07/07/22 20:33 Temperature 98.4 F Temperature Source Temporal Pulse Rate 89 94 Respiratory Rate 16 16 Respiratory Effort Normal Non-Labored Respiratory Pattern Normal Blood Pressure 140/82 H 141/92 H Blood Pressure Mean 101 108 Pulse Ox 99 96 Oxygen Delivery Method Room Air Room Air Positive well nourished and well developed General Appearance ED: well developed and NAD HEENT Reports moist mucous membranes normocephalic and atraumatic Eyes PERRL and EOMs intact bilaterally Neck full ROM and supple Resp normal respiratory effort and clear to auscultation bilaterally Cardio regular rate, regular rhythm and no murmurs Cardio Narrative: Normal 2+ bilateral radial, femoral, popliteal, and dorsalis pedis pulses Rate: Negative for tachycardic GI non-tender and non-distended Auscultation: normoactive bowel sounds Palpation: soft Back/Spine no CVA tenderness General Back: other FROM Extremity normal to inspection Extremity Narrative: All compartments of all 4 extremities soft, nondistended, nontender. Full range of motion throughout all joints of all 4 extremities. General Extremety ED: Negative for edema, pulses abnormal or tenderness General Extremity: Negative for edema or pulses abnormal Neuro oriented x3, CN's II-XII intact bilaterally and no sensory deficits noted Sensorium / Orientation: awake and alert Motor Exam: strength 5/5 throughout Psych mental status grossly normal Skin no rashes or lesions noted and no wounds MDM MDM MDM Narrative Medical decision making narrative: Differential here includes musculoskeletal etiologies of his pain which I favor, but also atypical cardiac symptoms, less likely pericardial effusion, Angelia syndrome given his symptoms, or aortic dissection. However test were obtained to screen for most of this, his EKG is normal, troponin is 19, down from over 125,000, and his chest x-ray shows a normal mediastinum and no other acute abnormalities. Radiology interpreted the x-ray as well, they agree that is negative and I agree with their interpretation. Patient is reassured, supportive care advised, we discussed reasons to return he is comfortable with this plan. Lab Data Attestation: I reviewed the patient's lab results. Labs: Laboratory Results - last 24 hr 07/07/22 07/07/22 16:49 16:49 WBC 5.9 RBC 4.96 Hgb 14.7 Hct 44.4 MCV 89.5 MCH 29.6 MCHC 33.1 RDW Std Deviation 40.8 RDW Coeff of Felix 12.5 Plt Count 102 L MPV 12.1 H Immature Gran % (Auto) 0.500 Neut % (Auto) 80.9 H Lymph % (Auto) 5.6 L Kerr % (Auto) 7.3 Eos % (Auto) 5.4 H Baso % (Auto) 0.3 Absolute Neuts (auto) 4.8 Absolute Lymphs (auto) 0.33 L Nucleated RBC % 0 Differential Comment SCANNED Sodium 137 Potassium 4.1 Chloride 104 Carbon Dioxide 27.0 Anion Gap 6 BUN 9 Creatinine 0.77 Estim Creat Clear Calc 116.81 Est GFR (MDRD) Af Amer 136 Est GFR (MDRD) Non-Af 112 BUN/Creatinine Ratio 11.7 Glucose 138 H Calcium 8.6 Troponin I High Sens 19 Radiography Chest X-Ray - ED: 2 View, Read by ED Physician and No Infiltrates (And no cardiomegaly. Mediastinum is narrow.) Diagnostic Testing: Clinical Impression(s) from Imaging Studies Chest X-Ray 07/07/22 19:10 IMPRESSION: 1. No radiographic evidence of acute cardiopulmonary disease. Electronically Signed: Rian Monterroso DO at 19:22 EST , Rhythm Strip Rhythm Strip: Sinus Rhythm Rate: 82 Ectopy: None EKG Initial EKG: Attestation: I personally reviewed and interpreted this EKG as follows: Interpretation: Sinus Rhythm and No Acute Injury Pattern Discharge Plan Triage Chief Complaint: General Illness ED Provider: Brock Kc Dx/Rx/DC Orders Clinical Impression: Muscle strain of upper back Instructions: ED Back Sprain/Strain Prescriptions: No Action atorvastatin 40 mg Tablet 40 mg PO QHS 30 Days Qty: 30 0RF aspirin 81 mg Tablet,Delayed Release (Dr/Ec) 81 mg PO DAILY 30 Days Qty: 30 0RF lisinopril 2.5 mg Tablet 2.5 mg PO DAILY 30 Days Qty: 30 0RF Brilinta 90 mg Tablet 90 mg PO BID 30 Days Qty: 60 0RF Kapspargo Sprinkle 25 mg capsule,sprinkle,ER 24hr 25 mg PO DAILY Label Comments: Take 1 capsule by mouth once daily. Primary Care Provider: José Antonio Looney Referrals: José Antonio Looney MD [Primary Care Provider] - 1 Week if not improving Activity Restrictions/Additional Instructions: Avoid ibuprofen and Aleve since they could interact with your new blood thinner. Disposition Disposition: Home, Self Care
[2022-07-07 18:55] LABS: Absolute Lymphocyte Count 0.33 X10^3/uL (0.83-4.51); Absolute Neutrophil Count 4.8 X10^3/uL (2.0-7.7); Basophil# 0.02 X10^3/uL; Basophil% 0.3 % (0-1); Eosinophil# 0.32 X10^3/uL; Eosinophils% 5.4 % (0-5); Hematocrit 44.4 % (40-54); Hemoglobin 14.7 g/dL (13.0-16.5); Lymphocyte # 0.33 X10^3/ul (0.83-4.51); Lymphocyte % 5.6 % (19-41); Mean Corp Hgb Conc 33.1 g/dL (32-36); Mean Corpuscular Hgb 29.6 pg (27.0-32.0); Mean Corpuscular Volume 89.5 fL (80-94); Mean Platelet Vol. 12.1 fl (6.2-12.0); Monocyte# 0.43 X10^3/uL; Monocyte% 7.3 % (0-10); NRBC Flagged by Analyzer 0 % (0-5); Neutrophil # 4.76 X10^3/uL (2.7-7.7); Neutrophil % 80.9 % (47-70); POSITIVE DIFFERENTIAL YES; Platelet Count 102 K/mm3 (150-450); RBC Distribution Width CV 12.5 % (11.6-14.6); RBC Distribution Width SD 40.8 fl (35.1-43.9); Red Blood Count 4.96 M/mm3 (4.6-6.2); White Blood Count 5.9 K/mm3 (4.4-11.0)
[2022-07-07 18:58] LABS: Differential Indicated SCAN CRITERIA MET
--- NOTE | 2022-07-07 19:10 | RAD_ITS ---
INDICATION: upper back pain, weakness, recent GA EXAMINATION/TECHNIQUE: X-RAY - XR Chest 2 Views COMPARISON: June 01, 2022 chest x-ray. FINDINGS: LINES/DEVICES: None. LUNGS: Symmetric normal lung volumes. No airspace opacity or abnormal interstitial pattern. No nodule or mass. No pleural effusion or pneumothorax. MEDIASTINUM AND CARDIOVASCULAR STRUCTURES: Normal size and contour of the cardiomediastinal silhouette. No evidence of pulmonary vascular congestion. BONES AND SOFT TISSUES: No fracture or focal osseous lesion. RAD/Chest PA and Lateral IMPRESSION: 1. No radiographic evidence of acute cardiopulmonary disease. Electronically Signed: Rian Monterroso DO at 19:22 EST ,
[2022-07-07 19:13] LABS: Anion Gap 6 (5-15); BUN 9 mg/dL (7-18); BUN/Creat Ratio 11.7 RATIO (10-20); Calcium,Total 8.6 mg/dL (8.5-10.1); Chloride 104 mmol/L (98-107); Creatinine, Serum 0.77 mg/dL (0.70-1.30); EST Glomerular Filtration Rate 112 mL/min (>60); Est Glom Filt Rate - Afr Amer 136 mL/min (>60); Estimated Creatinine Clearance 116.81 ml/min; Glucose 138 mg/dL (74-106); Potassium 4.1 mmol/L (3.5-5.1); Sodium Level 137 mmol/L (136-145); Troponin-I HS 19 pg/mL (3.0-78.0)
[2022-07-07 19:22] LABS: Differential Comment SCANNED
[2022-07-07 20:33] VITALS: BP 141/92; PULSE 94; RESP 16; O2SAT 96
[2022-07-07 20:58] VITALS: BP 141/92
== END 2022-07-07 20:58 | disposition home or self-care (01) ==
PROVIDERS: Emergency Provider Emergency Medicine; PCP Internal Medicine; Visit Provider Emergency Medicine
DX: S29.012A Strain of muscle and tendon of back wall of thorax, initial encounter (principal); I48.91 Unspecified atrial fibrillation; I25.2 Old myocardial infarction; I25.10 Atherosclerotic heart disease of native coronary artery without angina pectoris; F17.200 Nicotine dependence, unspecified, uncomplicated; F12.90 Cannabis use, unspecified, uncomplicated; I10 Essential (primary) hypertension; Z95.5 Presence of coronary angioplasty implant and graft; Z79.82 Long term (current) use of aspirin; Z79.899 Other long term (current) drug therapy; X58.XXXA Exposure to other specified factors, initial encounter
CPT/HCPCS: 71046; 80048; 84484; 85025; 93005; 99284; A4216

== ENCOUNTER 2022-07-09 17:22 | Emergency (ER) | payer MEDICAID, SELFPAY ==
[2022-07-09 17:24] VITALS: BP 115/7; PULSE 82; RESP 10; TEMP 36.8; O2SAT 98; BMI 25.2
--- NOTE | 2022-07-09 17:59 | EX.ED.DYSGE1 ---
HPI <MEMO Orr - Last Filed: 07/09/22 19:37> History of Present Illness Chief Complaint: Syncope Narrative Narrative: Patient is a 56-year-old male with history of recent STEMI June 01, 2022, patient is now on aspirin, Brilinta, metoprolol as well as atorvastatin lisinopril, patient states that overall he is chest pain and heart have been feeling well. He states that for the last 3 weeks he has been dealing with what he would call a sinus infection. He did see his PCP who gave him Flonase. He states that he bends over and gets dizzy. Today, he was been having cold chills, he got up and went to the bathroom to have a bowel movement, he then had a syncopal episode while in the bathroom with a episode of vomitus. The was concerned that he may be having another cardiac event. Patient is here for evaluation. Patient states that since he has been taking his metoprolol, he has been feeling more fatigued. PFSH <EMMO Orr - Last Filed: 07/09/22 19:37> PFSH Medical History Acute ST elevation myocardial infarction Atherosclerosis of coronary artery of [place] heart without angina pectoris Atrial fibrillation Diabetes mellitus, type 2 Essential hypertension Myocardial infarct Nonsustained ventricular tachycardia Smoker Home Medications aspirin 81 mg tablet,delayed release 81 mg PO DAILY 30 days #30 tabs 06/03/22 [Rx Last Taken Unknown] atorvastatin 40 mg tablet 40 mg PO QHS 30 days #30 tabs 06/03/22 [Rx Last Taken Unknown] lisinopril 2.5 mg tablet 2.5 mg PO DAILY 30 days #30 tabs 06/03/22 [Rx Last Taken Unknown] ticagrelor 90 mg tablet (Brilinta) 90 mg PO BID 30 days #60 tabs 06/03/22 [Rx Last Taken Unknown] metoprolol succinate 25 mg capsule sprinkle, ext. release 24 hr (Kapspargo Sprinkle) 25 mg PO DAILY 07/07/22 [History Last Taken Unknown] ondansetron 4 mg disintegrating tablet 4 mg PO Q8H PRN PRN Nausea #10 tabs 07/09/22 [Rx Last Taken Unknown] Allergy/AdvReac Type Severity Reaction Status Date / Time Penicillins Allergy Swelling Verified 07/07/22 18:07 Family History (Updated 06/01/22 @ 16:[address] Curt Cancino DO) Father CAD (coronary artery disease) Brother CAD (coronary artery disease) Surgical History History of coronary artery stent placement (06/01/22) Social History Smoking Status: Heavy Smoker (>10/day) alcohol intake: former substance use type: marijuana ROS <MEMO Orr - Last Filed: 07/09/22 19:37> ROS ED ROS Narrative Constitutional: Negative for fever, chills, weight loss, weakness Eyes: Negative for vision loss, vision change, double vision ENT: Negative for any sore throat, ear pain. Positive for congestion, facial pain Cardiovascular: Negative for any chest pain, tightness, palpitations Respiratory: Negative for any cough, sputum production, hemoptysis, dyspnea, dyspnea on exertion, orthopnea Gastrointestinal: Negative for any abdominal pain, nausea, vomiting, diarrhea, constipation, blood in stool, blood in vomit : Negative for any urinary frequency, dysuria, retention, blood in urine Muscle skeletal: Negative for any muscle joint pain, stiffness, myalgias, arthralgias, neck pain, back pain Neurological: Negative for any headache, syncope, numbness or tingling, dizziness. Positive for syncopal episode Skin: Negative for any rashes, lumps, itching, abrasions, lacerations Psychiatric: Negative for any depression, anxiety, stress, suicidal ideation, homicidal ideation Hematologic: Negative for any easy bruising, excessive bruising, easy bleeding Allergies: Negative for any eczema, hives, rash EXAM <MEMO Orr - Last Filed: 07/09/22 19:37> Physical Exam Narrative Exam Narrative: Vital signs reviewed. HEET: Head normocephalic atraumatic, TMs clear bilaterally. Posterior pharynx is clear, moist mucous membranes. Nares appear boggy yellow drainage noted. Neck: Supple with no lymphadenopathy or tenderness. No signs of meningismus, negative jolt sign. Cardiac: Regular rate and rhythm no murmurs gallops or rubs, equal peripheral pulses bilaterally. Respiratory: Lungs clear to auscultation bilaterally. No chest tenderness. Abdomen: Soft, nontender, nondistended. No abdominal bruit or pulsatile masses. No hepatosplenomegaly Extremities: No peripheral edema, no signs of gross trauma or deformity. Active full range of motion of all extremities. Neuro: Cranial nerves II through XII intact, no focal neurological deficits. Skin: Clean dry and intact with no rash, purpura, petechiae, vesicles or pustules. Backs/flank: No CVA tenderness, no midline spinal tenderness, no deformity. Psych: Normal mood and affect. No SI, HI or acute psychosis. Const Vital Signs: 07/09/22 17:24 07/09/22 17:28 07/09/22 18:16 Temperature 98.2 F Temperature Source Oral Pulse Rate 82 Pulse Rate [Lying] 71 Pulse Rate [Sitting (for 1 minute prior to obtaining)] 74 Pulse Rate [Standing (for 1 minute prior to obtaining)] 78 Respiratory Rate 10 L Respiratory Pattern Normal Blood Pressure 115/7 L Blood Pressure [Lying] 104/66 Blood Pressure [Sitting (for 1 minute prior to obtaining)] 115/76 Blood Pressure [Standing (for 1 minute prior to obtaining)] 103/83 H Blood Pressure Mean 43 Blood Pressure Mean [Lying] 78 Blood Pressure Mean [Sitting (for 1 minute prior to obtaining)] 89 Blood Pressure Mean [Standing (for 1 minute prior to obtaining)] 89 Pulse Ox 98 Oxygen Delivery Method Room Air 07/09/22 18:33 07/09/22 18:33 07/09/22 19:00 Temperature Temperature Source Pulse Rate 80 80 Pulse Rate [Lying] Pulse Rate [Sitting (for 1 minute prior to obtaining)] Pulse Rate [Standing (for 1 minute prior to obtaining)] Respiratory Rate 14 18 Respiratory Pattern Blood Pressure 117/80 113/66 Blood Pressure [Lying] Blood Pressure [Sitting (for 1 minute prior to obtaining)] Blood Pressure [Standing (for 1 minute prior to obtaining)] Blood Pressure Mean 92 81 Blood Pressure Mean [Lying] Blood Pressure Mean [Sitting (for 1 minute prior to obtaining)] Blood Pressure Mean [Standing (for 1 minute prior to obtaining)] Pulse Ox 98 94 Oxygen Delivery Method Room Air Room Air Room Air 07/09/22 19:41 Temperature Temperature Source Pulse Rate 75 Pulse Rate [Lying] Pulse Rate [Sitting (for 1 minute prior to obtaining)] Pulse Rate [Standing (for 1 minute prior to obtaining)] Respiratory Rate 14 Respiratory Pattern Blood Pressure 113/75 Blood Pressure [Lying] Blood Pressure [Sitting (for 1 minute prior to obtaining)] Blood Pressure [Standing (for 1 minute prior to obtaining)] Blood Pressure Mean Blood Pressure Mean [Lying] Blood Pressure Mean [Sitting (for 1 minute prior to obtaining)] Blood Pressure Mean [Standing (for 1 minute prior to obtaining)] Pulse Ox 94 Oxygen Delivery Method Positive well nourished and well developed General Appearance ED: well developed <Dr. Sergio Hawley, DO - Last Filed: 07/09/22 22:20> Physical Exam Const Vital Signs: 07/09/22 17:24 07/09/22 17:28 07/09/22 18:16 Temperature 98.2 F Temperature Source Oral Pulse Rate 82 Pulse Rate [Lying] 71 Pulse Rate [Sitting (for 1 minute prior to obtaining)] 74 Pulse Rate [Standing (for 1 minute prior to obtaining)] 78 Respiratory Rate 10 L Respiratory Pattern Normal Blood Pressure 115/7 L Blood Pressure [Lying] 104/66 Blood Pressure [Sitting (for 1 minute prior to obtaining)] 115/76 Blood Pressure [Standing (for 1 minute prior to obtaining)] 103/83 H Blood Pressure Mean 43 Blood Pressure Mean [Lying] 78 Blood Pressure Mean [Sitting (for 1 minute prior to obtaining)] 89 Blood Pressure Mean [Standing (for 1 minute prior to obtaining)] 89 Pulse Ox 98 Oxygen Delivery Method Room Air 07/09/22 18:33 07/09/22 18:33 07/09/22 19:00 Temperature Temperature Source Pulse Rate 80 80 Pulse Rate [Lying] Pulse Rate [Sitting (for 1 minute prior to obtaining)] Pulse Rate [Standing (for 1 minute prior to obtaining)] Respiratory Rate 14 18 Respiratory Pattern Blood Pressure 117/80 113/66 Blood Pressure [Lying] Blood Pressure [Sitting (for 1 minute prior to obtaining)] Blood Pressure [Standing (for 1 minute prior to obtaining)] Blood Pressure Mean 92 81 Blood Pressure Mean [Lying] Blood Pressure Mean [Sitting (for 1 minute prior to obtaining)] Blood Pressure Mean [Standing (for 1 minute prior to obtaining)] Pulse Ox 98 94 Oxygen Delivery Method Room Air Room Air Room Air 07/09/22 19:41 Temperature Temperature Source Pulse Rate 75 Pulse Rate [Lying] Pulse Rate [Sitting (for 1 minute prior to obtaining)] Pulse Rate [Standing (for 1 minute prior to obtaining)] Respiratory Rate 14 Respiratory Pattern Blood Pressure 113/75 Blood Pressure [Lying] Blood Pressure [Sitting (for 1 minute prior to obtaining)] Blood Pressure [Standing (for 1 minute prior to obtaining)] Blood Pressure Mean Blood Pressure Mean [Lying] Blood Pressure Mean [Sitting (for 1 minute prior to obtaining)] Blood Pressure Mean [Standing (for 1 minute prior to obtaining)] Pulse Ox 94 Oxygen Delivery Method [facility] <MEMO Orr - Last Filed: 07/09/22 19:37> [facility] Lab Data Labs: Laboratory Results - last 24 hr 07/09/22 07/09/22 07/09/22 17:30 17:30 17:30 WBC 3.6 L RBC 5.52 Hgb 16.5 Hct 48.6 MCV 88.0 MCH 29.9 MCHC 34.0 RDW Std Deviation 40.9 RDW Coeff of Felix 12.7 Plt Count 75 L MPV 12.9 H Immature Gran % (Auto) 0.600 Neut % (Auto) 56.9 Lymph % (Auto) 30.1 Millard % (Auto) 12.1 H Eos % (Auto) 0.0 Baso % (Auto) 0.3 Absolute Neuts (auto) 2.0 Absolute Lymphs (auto) 1.07 Nucleated RBC % 0 Sodium 136 Potassium 3.5 Chloride 103 Carbon Dioxide 25.0 Anion Gap 8 BUN 9 Creatinine 0.85 Estim Creat Clear Calc 105.81 Est GFR (MDRD) Af Amer 120 Est GFR (MDRD) Non-Af 99 BUN/Creatinine Ratio 10.6 Glucose 157 H Calcium 8.5 Troponin I High Sens 24 B-Natriuretic Peptide 430.7 H 07/09/22 19:20 WBC RBC Hgb Hct MCV MCH MCHC RDW Std Deviation RDW Coeff of Felix Plt Count MPV Immature Gran % (Auto) Neut % (Auto) Lymph % (Auto) Millard % (Auto) Eos % (Auto) Baso % (Auto) Absolute Neuts (auto) Absolute Lymphs (auto) Nucleated RBC % Sodium Potassium Chloride Carbon Dioxide Anion Gap BUN Creatinine Estim Creat Clear Calc Est GFR (MDRD) Af Amer Est GFR (MDRD) Non-Af BUN/Creatinine Ratio Glucose Calcium Troponin I High Sens 27 B-Natriuretic Peptide Radiography Diagnostic Testing: Clinical Impression(s) from Imaging Studies Chest X-Ray 07/09/22 18:10 IMPRESSION: No acute cardiopulmonary disease or major interval change. Electronically Signed: Reynaldo Brambila DO at 18:58 EST Reading Location ID and State: [address] [place] [address] Tel [phone], Service support , Differential Diagnosis Chest pain/SOB: ACS and pneumonia Differential Diagnosis: Pneumonia Why less likely: Negative for any cough or shortness of breath Differential Diagnosis: Influenza Why less likely: Positive for COVID Treatment and Re-Evaluation :: All radiologic examinations were read, reviewed by the emergency department attending. From these reads, a plan of care will be put in place. Patient appears generally well, patient's vital signs are stable, patient is in no distress. Patient presents to the emergency department after having a syncopal episode today, patient also states that he believes he is more weak secondary to his metoprolol as well as having congestion. Patient did receive a full work-up. Patient's vital signs were stable here. Patient did receive a chest x-ray, this showed no acute cardiopulmonary disease. Laboratory values showed a leukopenia with a white blood count 3.6. Patient's chemistries were unremarkable, patient BNP was elevated 430, patient's troponin was negative. There is no evidence suspect any ACS, [place]. EKG was unremarkable. Patient did receive a rapid influenza, COVID-19 test, this was positive for COVID-19. Patient's physical examination, HPI is consistent with COVID-19. There is no evidence suspect any cardiac involvement, patient had a syncopal episode secondary to vasovagal response. I did offer the patient's Paxlovid, patient refused at this time. He will follow-up with his sulfide head operator concerning his metoprolol. Patient is agreeable to follow-up. I spoke with the patient's mother as well as his . Patient is stable for discharge. And given return precaution. <Dr. Sergio Hawley DO - Last Filed: 07/09/22 22:20> MDM MDM Narrative Medical decision making narrative: Interventions / MDM: Differential diagnosis: Vasovagal syncope, nausea and vomiting, COVID, influenza Diagnosis considered but do not suspect: Acute coronary syndrome however no EKG ischemic changes negative troponin My EKG interpretation: Sinus rhythm nonspecific T wave version in aVL and V2. No ST changes. Imaging independently reviewed and interpreted by myself: Chest x-ray: No acute process. External documents reviewed: Inpatient records with STEMI and stent placed distal LAD. EF of 40%. Test considered but not ordered:N/A ED course: Attending note: Patient seen and evaluated with hoop riveting machine operator. I perform my own [id number] evaluation. I agree with the plan of work-up. History of last STEMI June for distal LAD stent, EF of 40%. States not feeling well fatigue since being on metoprolol, over the past day increasing myalgias and chills. No urinary symptoms. States on the commode had a syncopal episode no prodromal chest pains or shortness of breath. Woke up with nausea and vomiting x2 no hematemesis. Nausea improved after vomiting. Denies sick contacts. Exam after work-up initiated treatment alert nontoxic soft abdomen heart and lungs were normal. Nontoxic. Cardiac work-up was negative. COVID testing obtained positive. Discussed results with the patient he declines antivirals at this time. Prescription for Zofran to use as needed. Continue oral which were given. Return Re-evaluation: stable Disposition discussed with patient/family/significant other: Case discussed with consulting clinician: N/A Lab Data Attestation: I reviewed the patient's lab results. Labs: Laboratory Results - last 24 hr 07/09/22 07/09/22 07/09/22 17:30 17:30 17:30 WBC 3.6 L RBC 5.52 Hgb 16.5 Hct 48.6 MCV 88.0 MCH 29.9 MCHC 34.0 RDW Std Deviation 40.9 RDW Coeff of Felix 12.7 Plt Count 75 L MPV 12.9 H Immature Gran % (Auto) 0.600 Neut % (Auto) 56.9 Lymph % (Auto) 30.1 Millard % (Auto) 12.1 H Eos % (Auto) 0.0 Baso % (Auto) 0.3 Absolute Neuts (auto) 2.0 Absolute Lymphs (auto) 1.07 Nucleated RBC % 0 Sodium 136 Potassium 3.5 Chloride 103 Carbon Dioxide 25.0 Anion Gap 8 BUN 9 Creatinine 0.85 Estim Creat Clear Calc 105.81 Est GFR (MDRD) Af Amer 120 Est GFR (MDRD) Non-Af 99 BUN/Creatinine Ratio 10.6 Glucose 157 H Calcium 8.5 Troponin I High Sens 24 B-Natriuretic Peptide 430.7 H 07/09/22 19:20 WBC RBC Hgb Hct MCV MCH MCHC RDW Std Deviation RDW Coeff of Felix Plt Count MPV Immature Gran % (Auto) Neut % (Auto) Lymph % (Auto) Millard % (Auto) Eos % (Auto) Baso % (Auto) Absolute Neuts (auto) Absolute Lymphs (auto) Nucleated RBC % Sodium Potassium Chloride Carbon Dioxide Anion Gap BUN Creatinine Estim Creat Clear Calc Est GFR (MDRD) Af Amer Est GFR (MDRD) Non-Af BUN/Creatinine Ratio Glucose Calcium Troponin I High Sens 27 B-Natriuretic Peptide Radiography Diagnostic Testing: Clinical Impression(s) from Imaging Studies Chest X-Ray 07/09/22 18:10 IMPRESSION: No acute cardiopulmonary disease or major interval change. Electronically Signed: Reynaldo Brambila DO at 18:58 EST Reading Location ID and State: [address] [place] [address] Tel [phone], Service support , Discharge Plan Triage Chief Complaint: Syncope ED Midlevel Provider: Jeff Dugan ED Provider: Sergio Hawley Dx/Rx/DC Orders Clinical Impression: Vasovagal syncope, COVID-19 Instructions: Coronavirus Disease 2019 (COVID-19): Overview, ED Fainting, Vagal Reaction Prescriptions: New ondansetron [ondansetron] 4 mg tablet,disintegrating 4 mg PO Q8H PRN PRN (Reason: Nausea) Qty: 10 0RF No Action atorvastatin 40 mg Tablet 40 mg PO QHS 30 Days Qty: 30 0RF aspirin 81 mg Tablet,Delayed Release (Dr/Ec) 81 mg PO DAILY 30 Days Qty: 30 0RF lisinopril 2.5 mg Tablet 2.5 mg PO DAILY 30 Days Qty: 30 0RF Brilinta 90 mg Tablet 90 mg PO BID 30 Days Qty: 60 0RF Kapspargo Sprinkle 25 mg capsule,sprinkle,ER 24hr 25 mg PO DAILY Label Comments: Take 1 capsule by mouth once daily. Primary Care Provider: José Antonio Looney Referrals: José Antonio Looney MD [Primary Care Provider] - Activity Restrictions/Additional Instructions: Ensure that you talk to your sulfide head operator regarding your metoprolol, see if there is another agent to be placed on. You are positive for COVID-19, quarantine for 5 days. Return for any worsening symptoms. Disposition Disposition: Home, Self Care Discharge Date/Time: 07/09/22 19:47
--- NOTE | 2022-07-09 18:10 | RAD_ITS ---
STUDY: X-RAY CHEST REASON FOR EXAM: Male, 56 years old. Chest pain. TECHNIQUE: Single AP portable view of the chest. COMPARISON: July 07, 2022. FINDINGS: The lungs are clear and expanded. There is no demonstrated pleural abnormality. Normal size heart. Normal mediastinum and delmar. Normal visualized pulmonary arteries. Normal visualized aortic arch and descending thoracic aorta. The thoracic spine is obscured by the mediastinum. Normal visualized ribs, clavicles, and shoulders. There is no demonstrated abnormality of the visualized soft tissue structures of the upper abdomen. RAD/Chest 1 View (Portable) IMPRESSION: No acute cardiopulmonary disease or major interval change. Electronically Signed: Reynaldo Brambila DO at 18:58 EST ,
[2022-07-09 18:12] LABS: Absolute Lymphocyte Count 1.07 X10^3/uL (0.83-4.51); Basophil# 0.01 X10^3/uL; Basophil% 0.3 % (0-1); Hematocrit 48.6 % (40-54); Hemoglobin 16.5 g/dL (13.0-16.5); Lymphocyte # 1.07 X10^3/ul (0.83-4.51); Lymphocyte % 30.1 % (19-41); Mean Corpuscular Hgb 29.9 pg (27.0-32.0); Mean Platelet Vol. 12.9 fl (6.2-12.0); Monocyte# 0.43 X10^3/uL; Monocyte% 12.1 % (0-10); NRBC Flagged by Analyzer 0 % (0-5); Neutrophil # 2.02 X10^3/uL (2.7-7.7); Neutrophil % 56.9 % (47-70); POSITIVE COUNT YES; Platelet Count 75 K/mm3 (150-450); RBC Distribution Width CV 12.7 % (11.6-14.6); RBC Distribution Width SD 40.9 fl (35.1-43.9); Red Blood Count 5.52 M/mm3 (4.6-6.2); White Blood Count 3.6 K/mm3 (4.4-11.0)
[2022-07-09 18:16] VITALS: BP 103/83; BP 104/66; BP 115/76; PULSE 71; PULSE 74; PULSE 78
[2022-07-09 18:33] VITALS: BP 117/80; PULSE 80; RESP 14; O2SAT 98
[2022-07-09 18:43] LABS: Anion Gap 8 (5-15); BUN 9 mg/dL (7-18); BUN/Creat Ratio 10.6 RATIO (10-20); Calcium,Total 8.5 mg/dL (8.5-10.1); Chloride 103 mmol/L (98-107); Creatinine, Serum 0.85 mg/dL (0.70-1.30); EST Glomerular Filtration Rate 99 mL/min (>60); Est Glom Filt Rate - Afr Amer 120 mL/min (>60); Estimated Creatinine Clearance 105.81 ml/min; Glucose 157 mg/dL (74-106); Potassium 3.5 mmol/L (3.5-5.1); Sodium Level 136 mmol/L (136-145); Troponin-I HS (w/2H Reflex) 24 pg/mL (3.0-78.0)
[2022-07-09 18:54] LABS: BNP,B-Type NATRIURETIC PEPTIDE 430.7 pg/mL (0-100)
[2022-07-09 19:00] VITALS: BP 113/66; PULSE 80; RESP 18; O2SAT 94
[2022-07-09 19:41] VITALS: BP 113/75; PULSE 75; RESP 14; O2SAT 94
[2022-07-09 20:07] LABS: Reflex Troponin-HS? (from REC) Y
[2022-07-09 20:24] LABS: Troponin-I HS 27 pg/mL (3.0-78.0)
== END 2022-07-09 19:47 | disposition home or self-care (01) ==
PROVIDERS: Nurse Practitioner; Emergency Provider Emergency Medicine; PCP Internal Medicine; Visit Provider Emergency Medicine
DX: U07.1 COVID-19 (principal); E11.9 Type 2 diabetes mellitus without complications; R55 Syncope and collapse; F17.200 Nicotine dependence, unspecified, uncomplicated; I10 Essential (primary) hypertension; I25.2 Old myocardial infarction; I25.10 Atherosclerotic heart disease of native coronary artery without angina pectoris; Z95.5 Presence of coronary angioplasty implant and graft; Z79.82 Long term (current) use of aspirin; Z79.899 Other long term (current) drug therapy
CPT/HCPCS: 71045; 80048; 83880; 84484; 85025; 87428; 93005; 99285; J7030; A4216

== ENCOUNTER 2022-10-27 19:42 | Emergency (ER) | payer MEDICAID, SELFPAY ==
[2022-10-27 19:42] VITALS: BP 141/86; PULSE 100; RESP 18; TEMP 36.7; O2SAT 97; BMI 26.9
--- NOTE | 2022-10-27 20:00 | CT_ITS ---
STUDY: CT ABDOMEN AND PELVIS WITH CONTRAST REASON FOR EXAM: Male, 56 years old. low abd pain RADIATION DOSAGE (If Supplied By Facility): CTDIvol = ( 12.71 ) mGy, DLP = ( 824.80 ) mGycm TECHNIQUE: Transaxial images were obtained from the dome of the diaphragm to the symphysis pubis without oral contrast. IV 100mL [id number]-[id number] was administered. Sagittal and coronal images were reconstructed. Individualized dose optimization techniques were used for this CT. COMPARISON: 10/31/2018 FINDINGS: The visualized lung bases are unremarkable. The visualized portions of the heart are within normal limits. Normal liver. The gallbladder is contracted. Normal spleen. Normal pancreas. Normal bilateral adrenal glands. Normal right kidney. Normal left kidney. Normal visualized stomach. Normal small intestine. There is diverticulosis, with thickening of the colon wall, and pericolonic inflammation changes consistent with acute diverticulitis. No loculated fluid collection to suggest abscess. No pneumoperitoneum to suggest perforation. The appendix is visualized and appears normal. Normal abdominal aorta. Normal inferior vena cava. Normal retroperitoneum. Normal urinary bladder. There are prostatic calcifications. Normal abdominal wall. Normal osseous structures. CT/Abdomen/Pelvis W IV Cont ONLY IMPRESSION: Sigmoid diverticulitis without abscess or perforation. Electronically Signed: Yefri Roldan MD at 21:27 EDT ,
[2022-10-27] MEDS: 0.9% Normal Saline 1,000 ML 1000 ML IV (20:13)
--- NOTE | 2022-10-27 20:14 | ED.VIS.GI ---
HPI HPI - GI History of Present Illness Chief Complaint: Abd Pain Informant: patient Narrative Narrative: Patient presents with lower abdominal pain. Patient states he started having some pain probably yesterday. It is waxing and waning in but always in the low central area. No radiation. No nausea vomiting. He is moving his bowels and no blood or diarrhea or constipation. He states even after he moved his bowels he just feels kind of full. No fevers. He has never had any abdominal surgery. When asked, he does state he had a history of diverticulitis once but he is not sure if this is the same. No history of kidney stones. No flank pain. No urinary symptoms at all. No change in medicines. He is taking his Brilinta. PFSH PFSH Medical History Acute ST elevation myocardial infarction Atherosclerosis of coronary artery of [place] heart without angina pectoris Atrial fibrillation Cardiomyopathy, ischemic Diabetes mellitus, type 2 Essential hypertension Myocardial infarct Nonsustained ventricular tachycardia Smoker Home Medications aspirin 81 mg tablet,delayed release 81 mg PO DAILY 30 days #30 tabs 06/03/22 [Rx Last Taken Unknown] atorvastatin 40 mg tablet 40 mg PO QHS 30 days #30 tabs 06/03/22 [Rx Last Taken Unknown] ticagrelor 90 mg tablet (Brilinta) 90 mg PO BID 30 days #60 tabs 06/03/22 [Rx Last Taken Unknown] carvedilol 3.125 mg tablet (Coreg) 3.125 mg PO Q12H #180 tabs 07/21/22 [Rx Last Taken Unknown] ciprofloxacin HCl 500 mg tablet (Cipro) 500 mg PO BID #14 tabs 10/27/22 [Rx Last Taken Unknown] metronidazole 500 mg tablet 500 mg PO TID #21 tabs 10/27/22 [Rx Last Taken Unknown] Allergy/AdvReac Type Severity Reaction Status Date / Time Penicillins Allergy Swelling Verified 10/27/22 19:44 Family History Father CAD (coronary artery disease) Brother CAD (coronary artery disease) Surgical History History of coronary artery stent placement (06/01/22) Social History Smoking Status: Heavy Smoker (>10/day) alcohol intake: former substance use type: marijuana ROS ROS ED ROS Narrative A complete review of systems was performed and is negative except as documented in the history of present illness. Some specific details below. Constitutional: No recent fevers or chills. EYE: No visual complaints or pain. ENT: No difficulty swallowing. No swelling. No pain. CV: No chest pain or palpitations. Respiratory: No dyspnea. No hemoptysis. No difficulty taking breaths. GI: Please see history of present illness. : No frequency dysuria or hematuria. Musculoskeletal: No recent trauma. No pains. Skin: No rash. Nondiaphoretic. Neuro: No weakness or numbness. Endocrine: No polyuria or polydipsia. EXAM Physical Exam Narrative Exam Narrative: CONSTITUTIONAL: Patient is nontoxic in appearance. The patient looks comfortable. HEENT: No notable trauma. Mucous membranes moist. No sinus tenderness. No indication of pain with swallowing. EYES: No conjunctival injection. No proptosis. CARDIOVASCULAR: Regular rate. Regular rhythm. No notable murmur. No JVD. RESPIRATORY: No respiratory distress. Breathing is unlabored. No wheezes. No rhonchi. No rales. No pain with a deep breath. GASTROINTESTINAL: Not distended. Bowel sounds are normal. Mild low central tenderness. But no guarding or rebound. No palpable mass. No bruit. No hernia. GENITOURINARY: No tenderness over the bladder. No CVA tenderness. MUSCULOSKELETAL: Atraumatic. No peripheral edema. NEUROLOGICAL: Patient is alert and appropriate. No focal deficit noted. SKIN: No noted rashes. No diaphoresis. PSYCHIATRIC: Patient is calm. Mood is appropriate. Const Vital Signs: 10/27/22 19:42 Temperature 98.1 F Temperature Source Temporal Pulse Rate 100 Respiratory Rate 18 Blood Pressure 141/86 H Blood Pressure Mean 104 Pulse Ox 97 Oxygen Delivery Method Room Air MDM MDM MDM Narrative Medical decision making narrative: CBC shows minimal nonspecific elevation of white count. Hemoglobin platelets are normal. Patient's electrolytes are normal other than glucose being at 230. He does have a history of diet-controlled diabetes. This will have to be watched. This may come down as his infection is improving. But this needs to be rechecked. Urinalysis shows no acute process. My independent interpretation of her CT does show some stranding inflammation consistent with diverticulitis in the area of his pain. I do not see any perforation. Final reading also does not see perforation or abscess. Patient is very allergic to penicillins and amoxicillin. He thinks he was on Cipro and Flagyl in the past and he did well on this. We will get him started back on this. We also discussed clear liquid diet with slow advancement and very slow advancement to having meats. We discussed reasons to return that would include worsening pain, fevers, vomiting or other concerns. Lab Data Attestation: I reviewed the patient's lab results. Labs: Laboratory Results - last 24 hr 10/27/22 10/27/22 20:00 20:10 WBC 11.9 H RBC 5.04 Hgb 15.3 Hct 44.5 MCV 88.3 MCH 30.4 MCHC 34.4 RDW Std Deviation 43.0 RDW Coeff of Felix 13.2 Plt Count 158 MPV 11.6 Immature Gran % (Auto) 0.500 Neut % (Auto) 77.5 H Lymph % (Auto) 13.7 L Holt % (Auto) 6.2 Eos % (Auto) 1.7 Baso % (Auto) 0.4 Absolute Neuts (auto) 9.2 H Absolute Lymphs (auto) 1.63 Nucleated RBC % 0 Sodium 136 Potassium 3.4 L Chloride 104 Carbon Dioxide 25.0 Anion Gap 7 BUN 10 Creatinine 0.79 Estim Creat Clear Calc 110.37 Est GFR (MDRD) Af Amer 131 Est GFR (MDRD) Non-Af 108 BUN/Creatinine Ratio 12.6 Glucose 230 H Calcium 8.9 Urine Color Yellow Urine Clarity Clear Urine pH 7.0 Ur Specific [place] 1.015 Urine Protein 15 H Urine Glucose (UA) 1000 H Urine Ketones 5 H Urine Occult Blood 25 H Urine Nitrite Negative Urine Bilirubin Negative Urine Urobilinogen 1 H Ur Leukocyte Esterase Negative Urine RBC 0-5 SEEN Urine WBC 0 SEEN Ur Squamous Epith Cells 0 SEEN Urine Bacteria 0 SEEN Urine Mucus 0 SEEN Radiography Diagnostic Testing: Clinical Impression(s) from Imaging Studies Abdomen/Pelvis CT 10/27/22 20:00 IMPRESSION: Sigmoid diverticulitis without abscess or perforation. Electronically Signed: Yefri Roldan MD at 21:27 EDT , Discharge Plan Triage Chief Complaint: Abd Pain ED Provider: Nico Perdomo Dx/Rx/DC Orders Clinical Impression: Diverticulitis Instructions: ED Diverticulitis Prescriptions: New metronidazole 500 mg tablet 500 mg PO TID Qty: 21 0RF ciprofloxacin HCl [Cipro] 500 mg tablet 500 mg PO BID Qty: 14 0RF No Action carvedilol [Coreg] 3.125 mg tablet 3.125 mg PO Q12H Qty: 180 3RF Rx Instructions: must administer with a meal/food atorvastatin 40 mg Tablet 40 mg PO QHS 30 Days Qty: 30 0RF aspirin 81 mg Tablet,Delayed Release (Dr/Ec) 81 mg PO DAILY 30 Days Qty: 30 0RF Brilinta 90 mg Tablet 90 mg PO BID 30 Days Qty: 60 0RF Primary Care Provider: José Antonio Looney Referrals: José Antonio Looney MD [Primary Care Provider] - 3-5 Days if not improving Disposition Disposition: Home, Self Care
[2022-10-27 20:24] LABS: Bacteria 0 SEEN /hpf (None Seen); Mucous, Urine 0 SEEN /hpf (<or=2+); Squamous Epithelial Cells - UA 0 SEEN /hpf (0-5); White Blood Cells 0 SEEN /hpf (0-5)
[2022-10-27 20:30] LABS: Absolute Lymphocyte Count 1.63 X10^3/uL (0.83-4.51); Absolute Neutrophil Count 9.2 X10^3/uL (2.0-7.7); Basophil# 0.05 X10^3/uL; Basophil% 0.4 % (0-1); Eosinophils% 1.7 % (0-5); Hematocrit 44.5 % (40-54); Hemoglobin 15.3 g/dL (13.0-16.5); Lymphocyte # 1.63 X10^3/ul (0.83-4.51); Lymphocyte % 13.7 % (19-41); Mean Corp Hgb Conc 34.4 g/dL (32-36); Mean Corpuscular Hgb 30.4 pg (27.0-32.0); Mean Corpuscular Volume 88.3 fL (80-94); Mean Platelet Vol. 11.6 fl (6.2-12.0); Monocyte# 0.73 X10^3/uL; Monocyte% 6.2 % (0-10); NRBC Flagged by Analyzer 0 % (0-5); Neutrophil # 9.19 X10^3/uL (2.7-7.7); Neutrophil % 77.5 % (47-70); Platelet Count 158 K/mm3 (150-450); RBC Distribution Width CV 13.2 % (11.6-14.6); Red Blood Count 5.04 M/mm3 (4.6-6.2); White Blood Count 11.9 K/mm3 (4.4-11.0)
[2022-10-27 20:32] LABS: Color, Urine Yellow (Yellow); Glucose, Dipstick 1000 mg/dl (Normal); Ketone-Dipstick 5 mg/dl (Negative); Leukocyte Esterase-Dipstick Negative /ul (Negative); Nitrite-Dipstick Negative (Negative); Occult Blood-Urine 25 /ul (Negative); Protein-Dipstick 15 mg/dl (Negative); Specific Gravity, Urine 1.015 (1.002-1.030); Urine Bilirubin Dipstick Negative (Negative); Urine Clarity Clear (Clear); Urine Urobilinogen 1 mg/dl (Normal)
[2022-10-27 20:45] LABS: Red Blood Cells-Urine 0-5 SEEN /hpf (0-5)
[2022-10-27 20:46] LABS: Anion Gap 7 (5-15); BUN 10 mg/dL (7-18); BUN/Creat Ratio 12.6 RATIO (10-20); Calcium,Total 8.9 mg/dL (8.5-10.1); Chloride 104 mmol/L (98-107); Creatinine, Serum 0.79 mg/dL (0.70-1.30); EST Glomerular Filtration Rate 108 mL/min (>60); Est Glom Filt Rate - Afr Amer 131 mL/min (>60); Estimated Creatinine Clearance 110.37 ml/min; Glucose 230 mg/dL (74-106); Potassium 3.4 mmol/L (3.5-5.1); Sodium Level 136 mmol/L (136-145)
[2022-10-27 21:42] VITALS: RESP 18
[2022-10-27] MEDS: metroNIDAZOLE 500 MG Tablet PO (22:04)
[2022-10-27] MEDS: Ciprofloxacin 500 MG Tablet PO (22:04)
[2022-10-27 22:10] VITALS: BP 135/76; PULSE 84; RESP 18; O2SAT 100
== END 2022-10-27 22:11 | disposition home or self-care (01) ==
PROVIDERS: Emergency Provider Emergency Medicine; PCP Internal Medicine; Visit Provider Emergency Medicine
DX: K57.92 Diverticulitis of intestine, part unspecified, without perforation or abscess without bleeding (principal); E11.9 Type 2 diabetes mellitus without complications; I25.10 Atherosclerotic heart disease of native coronary artery without angina pectoris; F17.200 Nicotine dependence, unspecified, uncomplicated; I10 Essential (primary) hypertension; Z79.82 Long term (current) use of aspirin; Z79.899 Other long term (current) drug therapy; I25.2 Old myocardial infarction
CPT/HCPCS: 74177; 80048; 81001; 85025; 96360; 99284; J7030; Q9967; A4216

== ENCOUNTER 2023-11-18 08:41 | Emergency (ER) | payer MEDICAID, SELFPAY ==
[2023-11-18 08:41] VITALS: BP 161/101; PULSE 62; RESP 14; TEMP 36.8; O2SAT 98; BMI 25.8
--- NOTE | 2023-11-18 08:53 | EDS_ITS ---
HPI HPI - GI History of Present Illness Chief Complaint: Abd Pain Detail of Chief Complaint: Abdominal pain Informant: patient Narrative Narrative: Patient presents to the emergency department complaint of abdominal pain and sore yesterday. Patient states that he has had similar pain multiple times in the past and was diagnosed with diverticulitis. He denies fevers or chills or sweats. He denies nausea or vomiting. He had bowel movement this morning and denies any blood in his stool. Denies black tarry stool. He denies urinary symptoms. PFSH PFSH Medical History Acute ST elevation myocardial infarction Atherosclerosis of coronary artery of [place] heart without angina pectoris Atrial fibrillation Cardiomyopathy, ischemic Diabetes mellitus, type 2 Essential hypertension Myocardial infarct Nonsustained ventricular tachycardia Smoker Home Medications ?Medication ?Instructions ?Recorded ?Last Taken ?Type aspirin 81 mg tablet,delayed 81 mg PO DAILY 30 days #30 tabs 06/03/22 Unknown Rx release atorvastatin 40 mg tablet 40 mg PO QHS 30 days #30 tabs 06/03/22 Unknown Rx ticagrelor 90 mg tablet (Brilinta) 90 mg PO BID 30 days #60 tabs 06/03/22 Unknown Rx carvedilol 3.125 mg tablet (Coreg) 3.125 mg PO Q12H #180 tabs 07/21/22 Unknown Rx ciprofloxacin HCl 500 mg tablet 500 mg PO BID #14 tabs 10/27/22 Unknown Rx (Cipro) metronidazole 500 mg tablet 500 mg PO TID #21 tabs 10/27/22 Unknown Rx ciprofloxacin HCl 500 mg tablet 500 mg PO BID #14 TABLETS 11/18/23 Unknown Rx metronidazole 500 mg tablet 500 mg PO TID #21 tabs 11/18/23 Unknown Rx Allergy/AdvReac Type Severity Reaction Status Date / Time Penicillins Allergy Swelling Verified 11/18/23 08:42 Family History Father CAD (coronary artery disease) Brother CAD (coronary artery disease) Surgical History History of coronary artery stent placement (06/01/22) Social History Smoking Status: Heavy Smoker (>10/day) alcohol intake: former substance use type: marijuana ROS ROS ED Review of Systems ROS Unobtainable: other Constitutional Constitutional ED: Reports lethargy; Denies chills, fever(s), sweats or weight loss Eyes Eyes: Denies blurry vision, change in vision or diplopia ENT ENT ED: Denies rhinorrhea or sore throat Cardiovascular Cardiovascular: Denies chest pain, orthopnea or racing heartbeat Respiratory/Chest Respiratory/Chest: Denies cough, dyspnea, dyspnea on exertion, orthopnea or sputum Gastrointestinal Gastrointestinal: Reports abdominal pain; Denies diarrhea, nausea or vomiting Genitourinary Genitourinary ED: Denies dysuria, hematuria or urinary frequency Musculoskeletal Musculoskeletal: Denies arthralgias, back pain, myalgias or neck pain Integumentary Denies abscess, Abrasions or rash Neurologic Neurologic: Denies headache(s) or weakness Psychiatric Psychiatric: Denies anxiety, depression or suicidal thoughts Endocrine Endocrinology: Denies polydipsia, polyphagia or polyuria Hematologic/Lymphatic Hematologic/Lymphatic: Denies easy bleeding, easy bruising or lymphadenopathy Allergic/Immunologic Allergic/Immunologic ED: Denies mouth swelling, tongue swelling or urticaria EXAM Physical Exam Const Vital Signs: 11/18/23 08:41 Temperature 98.3 F Temperature Source Temporal Pulse Rate 62 Respiratory Rate 14 Blood Pressure 161/101 H Blood Pressure Mean 121 Pulse Ox 98 Oxygen Delivery Method Room Air Positive well nourished and well developed General Appearance ED: well developed and NAD HEENT Reports TM's clear and moist mucous membranes normocephalic and atraumatic; Negative for trauma or tenderness Tympanic Membrane ED: Yes TM's clear Eyes PERRL and EOMs intact bilaterally General Eye ED: Negative for pale conjunctiva or scleral icterus Neck no lymphadenopathy, supple and no JVD General: Negative for tenderness Chest Wall inspection of chest normal and palpation of chest normal Chest: Negative for tenderness Resp normal respiratory effort and clear to auscultation bilaterally Effort and Inspection: Negative for respiratory distress or pain with movement Auscultation: Negative for rhonchi, wheezes or diminished lung sounds Cardio regular rate, regular rhythm, S1 normal heart sound, S2 normal heart sound and no murmurs Peripheral Pulses: pulses 2+ throughout GI normal to inspection, nondistended, normoactive bowel sounds, soft to palpation, non-distended and no masses GI Narrative: Tenderness to palpation over left lower quadrant and suprapubic region with some mild guarding. There is no rebound, rigidity, or pineal signs. No mass palpa ella Back/Spine no CVA tenderness and no thoracic nor lumbar tenderness Extremity normal to inspection General Extremety ED: Negative for edema General Extremity: Negative for edema Neuro oriented x3, CN's II-XII intact bilaterally, no sensory deficits noted and gait normal Sensorium / Orientation: awake, alert, oriented to person, oriented to place and oriented to time Motor Exam: strength 5/5 throughout and strength abnormal Psych mental status grossly normal Skin no rashes or lesions noted and no wounds MDM MDM MDM Narrative Medical decision making narrative: Patient presents with lower abdomen pain with history of diverticulitis. This is most likely etiology of his pain. Also in the differential would be kidney stone no artery less likely UTI or bowel obstruction or bowel perforation. IV line established. CBC with differential obtained for white count 11.7 with hemoglobin 17 and platelet count of 149. Chemistries unremarkable. Patient had a CT scan of the abdomen pelvis without contrast and this showed acute diverticulitis of the sigmoid colon without evidence of perforation or abscess. Patient was started on Cipro and Flagyl p.o. Patient advised on a clear liquid diet for the next 2 days and then a brat diet. Advised to return if worsening pain, fever, bloody stools, or condition worsening way. Patient will be referred to general surgeon as he is never had a colonoscopy. Lab Data Attestation: I reviewed the patient's lab results. Labs: Laboratory Results - last 24 hr 11/18/23 09:00 WBC 11.7 H RBC 5.82 Hgb 17.0 H Hct 50.9 MCV 87.5 MCH 29.2 MCHC 33.4 RDW Std Deviation 43.2 RDW Coeff of Felix 13.6 Plt Count 149 L MPV 11.2 Immature Gran % (Auto) 0.400 Neut % (Auto) 69.9 Lymph % (Auto) 18.1 L Mck[place] % (Auto) 6.8 Eos % (Auto) 4.1 Baso % (Auto) 0.7 Absolute Neuts (auto) 8.2 H Absolute Lymphs (auto) 2.12 Nucleated RBC % 0 Sodium 138 Potassium 4.1 Chloride 108 H Carbon Dioxide 24.0 Anion Gap 6 BUN 8 Creatinine 0.76 Estim Creat Clear Calc 116.97 Est GFR (MDRD) Af Amer 138 Est GFR (MDRD) Non-Af 114 BUN/Creatinine Ratio 10.6 Glucose 132 H Calcium 8.8 Radiography Diagnostic Testing: Clinical Impression(s) from Imaging Studies Abdomen/Pelvis CT 11/18/23 08:53 IMPRESSION: Sigmoid diverticulitis. No obstruction or abscess. Electronically Signed: Brock Sharif MD at 9:31 EDT Reading Location ID and State: [address] [place] [address] , Service support , Discharge Plan Triage Chief Complaint: Abd Pain ED Provider: Lakhwinder Triplett Dx/Rx/DC Orders Clinical Impression: Acute diverticulitis Instructions: ED Diverticulitis Prescriptions: New ciprofloxacin HCl 500 mg tablet 500 mg PO BID Qty: 14 0RF metronidazole 500 mg tablet 500 mg PO TID Qty: 21 0RF No Action carvedilol [Coreg] 3.125 mg tablet 3.125 mg PO Q12H Qty: 180 3RF Rx Instructions: must administer with a meal/food atorvastatin 40 mg Tablet 40 mg PO QHS 30 Days Qty: 30 0RF aspirin 81 mg Tablet,Delayed Release (Dr/Ec) 81 mg PO DAILY 30 Days Qty: 30 0RF Brilinta 90 mg Tablet 90 mg PO BID 30 Days Qty: 60 0RF metronidazole 500 mg tablet 500 mg PO TID Qty: 21 0RF ciprofloxacin HCl [Cipro] 500 mg tablet 500 mg PO BID Qty: 14 0RF Primary Care Provider: José Antonio Looney Referrals: Rian Marie MD [Med Staff - Active Staff] - 5-7 Days José Antonio Looney MD [Primary Care Provider] - Activity Restrictions/Additional Instructions: Do not drink alcohol while taking Flagyl. Print Language: [place]ian Disposition Disposition: Home, Self Care
--- NOTE | 2023-11-18 08:53 | CT_ITS ---
STUDY: CT ABDOMEN AND PELVIS WITHOUT CONTRAST REASON FOR EXAM: Male, 57 years old. Pain RADIATION DOSAGE (If Supplied By Facility): CTDIvol = ( 9.30 ) mGy, DLP = ( 466.83 ) mGycm TECHNIQUE: Transaxial images were obtained from the dome of the diaphragm to the symphysis pubis without oral contrast, and without intravenous contrast. Sagittal and coronal images were reconstructed. Individualized dose optimization techniques were used for this CT. COMPARISON: October 27, 2022 FINDINGS: The visualized lung bases are unremarkable. The visualized portions of the heart are within normal limits. Normal liver. Normal gallbladder and extrahepatic biliary system. Normal spleen. There are a few pancreatic calcifications in the distribution of the ducts consistent with chronic pancreatitis. Normal bilateral adrenal glands. Normal right kidney. Normal left kidney. Normal visualized stomach. Normal small intestine. There is diverticulosis, with thickening of the sigmoid colon wall, and left lower quadrant pericolonic inflammation changes consistent with acute diverticulitis. The appendix is visualized and appears normal. Normal abdominal aorta. Normal inferior vena cava. Normal retroperitoneum. Normal urinary bladder. There are prostatic calcifications. There is no free fluid in the abdomen or pelvis. Normal abdominal wall. There is degenerative change of the spine. CT/Abdomen/Pelvis without Cont IMPRESSION: Sigmoid diverticulitis. No obstruction or abscess. Electronically Signed: Brock Sharif MD at 9:31 EDT ,
[2023-11-18 09:13] LABS: Absolute Lymphocyte Count 2.12 X10^3/uL (0.83-4.51); Absolute Neutrophil Count 8.2 X10^3/uL (2.0-7.7); Basophil# 0.08 X10^3/uL; Basophil% 0.7 % (0-1); Eosinophil# 0.48 X10^3/uL; Eosinophils% 4.1 % (0-5); Hematocrit 50.9 % (40-54); Lymphocyte # 2.12 X10^3/ul (0.83-4.51); Lymphocyte % 18.1 % (19-41); Mean Corp Hgb Conc 33.4 g/dL (32-36); Mean Corpuscular Hgb 29.2 pg (27.0-32.0); Mean Corpuscular Volume 87.5 fL (80-94); Mean Platelet Vol. 11.2 fl (6.2-12.0); Monocyte% 6.8 % (0-10); NRBC Flagged by Analyzer 0 % (0-5); Neutrophil # 8.18 X10^3/uL (2.7-7.7); Neutrophil % 69.9 % (47-70); Platelet Count 149 K/mm3 (150-450); RBC Distribution Width CV 13.6 % (11.6-14.6); RBC Distribution Width SD 43.2 fl (35.1-43.9); Red Blood Count 5.82 M/mm3 (4.6-6.2); White Blood Count 11.7 K/mm3 (4.4-11.0)
[2023-11-18 09:30] LABS: Anion Gap 6 (5-15); BUN 8 mg/dL (7-18); BUN/Creat Ratio 10.6 RATIO (10-20); Calcium,Total 8.8 mg/dL (8.5-10.1); Chloride 108 mmol/L (98-107); Creatinine, Serum 0.76 mg/dL (0.70-1.30); EST Glomerular Filtration Rate 114 mL/min (>60); Est Glom Filt Rate - Afr Amer 138 mL/min (>60); Estimated Creatinine Clearance 116.97 ml/min; Glucose 132 mg/dL (74-106); Potassium 4.1 mmol/L (3.5-5.1); Sodium Level 138 mmol/L (136-145)
[2023-11-18] MEDS: Ciprofloxacin 500 MG Tablet PO (09:57)
[2023-11-18] MEDS: metroNIDAZOLE 500 MG Tablet PO (09:57)
[2023-11-18 10:01] VITALS: BP 134/78; PULSE 64; RESP 18; TEMP 36.6; O2SAT 99
== END 2023-11-18 10:02 | disposition home or self-care (01) ==
PROVIDERS: Emergency Provider Emergency Medicine; PCP Internal Medicine; Visit Provider Emergency Medicine
DX: K57.32 Diverticulitis of large intestine without perforation or abscess without bleeding (principal); I48.91 Unspecified atrial fibrillation; E11.9 Type 2 diabetes mellitus without complications; I25.10 Atherosclerotic heart disease of native coronary artery without angina pectoris; F17.200 Nicotine dependence, unspecified, uncomplicated; I10 Essential (primary) hypertension; I25.2 Old myocardial infarction; Z79.82 Long term (current) use of aspirin; Z79.899 Other long term (current) drug therapy; Z95.5 Presence of coronary angioplasty implant and graft
CPT/HCPCS: 74176; 80048; 85025; 99283; A4216

== ENCOUNTER 2024-08-14 19:42 | Emergency (ER) | payer MEDICAID, SELFPAY ==
[2024-08-14 19:43] VITALS: BP 144/82; PULSE 87; RESP 18; TEMP 36.6; O2SAT 98; BMI 26.5
--- NOTE | 2024-08-14 20:00 | CT_ITS ---
PROCEDURE: ABDOMEN/PELVIS W IV CONT ONLY 08/14/2024 REASON FOR EXAM: ABDOMINAL TECHNIQUE: Abdomen and pelvis CT with intravenous contrast. Coronal and Sagittal reconstruction series were provided. PATIENT PREPARATION: Per protocol ORAL CONTRAST TYPE: None. AMOUNT: mL CONTRAST: Not included with this study VOLUME: Not included with this study. ML Not Provided Gauge IV One or more dose reduction techniques were used (e.g., Automated exposure control, adjustment of the mA and/or kV according to patient size, use of iterative reconstruction technique. RADIATION DOSE SUMMARY: CTDlvol: 28 mGy DLP: 907 mGycm COMPARISON: None FINDINGS: Lung bases: Mild dependent atelectasis Liver: Normal size. No mass. Gallbladder: Decompressed gallbladder. Spleen: Normal size. Pancreas: Normal size without evidence of mass surrounding inflammation or ductal dilation. Adrenals: Unremarkable Kidneys: Normal renal sizes. No hydronephrosis. Bladder: Unremarkable Reproductive Organs: Tiny punctate calcifications of the prostate gland. Bowel: Evaluation of the bowel loops are limited due to lack of oral contrast. Sigmoid diverticulosis with wall thickening and adjacent stranding, consistent with acute diverticulitis. The remaining large bowel is grossly unremarkable. No inflammatory changes of the small bowel. Stomach is unremarkable. Appendix: Unremarkable. Lymph nodes: Unremarkable. Vasculature: Mild diffuse atherosclerotic calcifications are noted. Peritoneum / Retroperitoneum: No free air or free fluid. Bones: Unremarkable. CT/Abdomen/Pelvis W IV Cont ONLY IMPRESSION: Findings consistent with acute sigmoid diverticulitis. No abscess formation or free air. Reading Location: [facility]
--- NOTE | 2024-08-14 20:03 | EX.ED.DYSGE1 ---
[facility] <MEMO Orr - Last Filed: 08/14/24 22:07> History of Present Illness Chief Complaint: Abd Pain Narrative Narrative: Patient is a 58-year-old male with history of CAD, [place], hypertension who presents to the emergency department with complaints of pain to the lower abdomen. Patient also started yesterday. Patient states that the left lower abdomen is tender to the touch, slight nausea however no vomiting. Patient denies any fever or chills. In September 2022 he was diagnosed with diverticulitis he says it feels similar. Here for evaluation [facility] <MEOM Orr - Last Filed: 08/14/24 22:07> [facility] Medical History Acute ST elevation myocardial infarction Atherosclerosis of coronary artery of [place] heart without angina pectoris Atrial fibrillation Cardiomyopathy, ischemic Diabetes mellitus, type 2 Essential hypertension Myocardial infarct Nonsustained ventricular tachycardia Smoker Home Medications ?Medication ?Instructions ?Recorded ?Last Taken ?Type aspirin 81 mg tablet,delayed 81 mg PO DAILY 30 days #30 tabs 06/03/22 Unknown Rx release ciprofloxacin HCl 500 mg tablet 500 mg PO BID 10 days #20 tabs 08/14/24 Unknown Rx (Cipro) coenzyme Q10 100 mg capsule 100 mg PO DAILY 08/14/24 Unknown History (CoQ-10) empagliflozin 10 mg tablet 10 mg PO DAILY 08/14/24 Unknown History (Jardiance) lisinopril 2.5 mg tablet 2.5 mg PO DAILY 08/14/24 Unknown History metoprolol succinate 25 mg 25 mg PO DAILY 08/14/24 Unknown History tablet,extended release 24 hr metronidazole 500 mg tablet 500 mg PO Q8H 10 days #30 tabs 08/14/24 Unknown Rx rosuvastatin 20 mg tablet 20 mg PO QHS 08/14/24 Unknown History Allergy/AdvReac Type Severity Reaction Status Date / Time Penicillins Allergy Swelling Verified 08/14/24 19:45 Family History Father CAD (coronary artery disease) Brother CAD (coronary artery disease) Surgical History History of coronary artery stent placement (06/01/22) Social History Smoking Status: Heavy Smoker (>10/day) alcohol intake: former substance use type: marijuana ROS <EMI OrrC - Last Filed: 08/14/24 22:07> ROS ED ROS Narrative Constitutional: Negative for fever, chills, weight loss, weakness Eyes: Negative for vision loss, vision change, double vision ENT: Negative for any sore throat, ear pain, congestion Cardiovascular: Negative for any chest pain, tightness, palpitations Respiratory: Negative for any cough, sputum production, hemoptysis, dyspnea, dyspnea on exertion, orthopnea Gastrointestinal: Negative for any nausea, vomiting, diarrhea, constipation, blood in stool, blood in vomit. Positive for abdominal pain : Negative for any urinary frequency, dysuria, retention, blood in urine Muscle skeletal: Negative for any neck pain, back pain Neurological: Negative for any headache, syncope, dizziness Skin: Negative for any rashes, itching, abrasions, lacerations Psychiatric: Negative for any depression, anxiety, stress, suicidal ideation, homicidal ideation Hematologic: Negative for any excessive bruising, easy bleeding EXAM <MEMO Orr - Last Filed: 08/14/24 22:07> Physical Exam Narrative Exam Narrative: Vital signs reviewed. HEET: Head normocephalic atraumatic, TMs clear bilaterally. Posterior pharynx is clear, moist mucous membranes. Nares clear bilaterally. Neck: Supple with no lymphadenopathy or tenderness. No signs of meningismus. Cardiac: Regular rate and rhythm no murmurs gallops or rubs, equal peripheral pulses bilaterally. Respiratory: Lungs clear to auscultation bilaterally. No chest tenderness. Abdomen: Soft, nondistended. No abdominal bruit or pulsatile masses. No hepatosplenomegaly. Tenderness to the lower mid and left abdomen. No peritoneal signs. Extremities: No peripheral edema, no signs of gross trauma or deformity. Active full range of motion of all extremities. Neuro: Cranial nerves II through XII intact, no focal neurological deficits. Skin: Clean dry and intact with no rash, purpura, petechiae, vesicles or pustules. Backs/flank: No CVA tenderness, no midline spinal tenderness, no deformity. Psych: Normal mood and affect. No SI, HI or acute psychosis. Const Vital Signs: 08/14/24 19:43 08/14/24 21:19 Temperature 97.8 F Temperature Source Oral Pulse Rate 87 79 Respiratory Rate 18 16 Blood Pressure 144/82 H Blood Pressure Mean 102 Pulse Ox 98 98 Oxygen Delivery Method Room Air Room Air <Marino Woo MD - Last Filed: 08/14/24 22:12> Physical Exam Const Vital Signs: 08/14/24 19:43 08/14/24 21:19 Temperature 97.8 F Temperature Source Oral Pulse Rate 87 79 Respiratory Rate 18 16 Blood Pressure 144/82 H Blood Pressure Mean 102 Pulse Ox 98 98 Oxygen Delivery Method Room Air Room Air MDM <MEMO Orr - Last Filed: 08/14/24 22:07> [facility] Lab Data Labs: Laboratory Results - last 24 hr 08/14/24 20:07 WBC 10.7 RBC 5.57 Hgb 16.5 Hct 48.0 MCV 86.2 MCH 29.6 MCHC 34.4 RDW Std Deviation 41.3 RDW Coeff of Felix 13.2 Plt Count 150 MPV 11.3 Immature Gran % (Auto) 0.400 Neut % (Auto) 64.7 Lymph % (Auto) 22.7 Cloud % (Auto) 7.5 Eos % (Auto) 4.1 Baso % (Auto) 0.6 Absolute Neuts (auto) 6.9 Absolute Lymphs (auto) 2.42 Nucleated RBC % 0 Sodium 136 Potassium 3.6 Chloride 102 Carbon Dioxide 21.9 Anion Gap 12 BUN 12 Creatinine 0.85 Estim Creat Clear Calc 103.35 Est GFR (MDRD) Non-Af 102 BUN/Creatinine Ratio 13.7 Glucose 171 H Calcium 8.7 Total Bilirubin 0.62 AST 15 ALT 18 Alkaline Phosphatase 125 Total Protein 7.2 Albumin 4.2 Globulin 3.1 Albumin/Globulin Ratio 1.4 Lipase 21 Radiography Diagnostic Testing: Clinical Impression(s) from Imaging Studies Abdomen/Pelvis CT 08/14/24 20:00 IMPRESSION: Findings consistent with acute sigmoid diverticulitis. No abscess formation or free air. [facility] and [facility] :: Differential diagnosis includes however is not limited to: Enteritis, gastroenteritis, bowel obstruction, diverticulitis, diverticulitis with abscess Patient appears generally well, vital signs are stable, patient is nontoxic-appearing. Presenting to the emerged part with 2 days of left lower quadrant abdominal pain. Patient has have history of diverticulitis. Patient received basic laboratory values, IV fluid Zofran Toradol. CT scan of the abdomen pelvis with IV contrast to be ordered. All radiologic examinations were read, reviewed by the emergency department attending. From these reads, a plan of care will be put in place. Patient CBC was negative for any acute process. Patient's chemistries were unremarkable. Lipase was negative. Patient's CT scan shows findings consistent with acute sigmoid diverticulitis, no abscess formation or free air. Secondary to this finding, patient be placed on Cipro as well as Flagyl. Patient was given his first dose today. Patient be given antibiotics for home. Instructed to follow-up outpatient. All questions answered, patient stable for discharge <Marino Woo MD - Last Filed: 08/14/24 22:12> [facility] MDM Narrative Medical decision making narrative: Dr. Woo: I have personally performed a face to face assessment of the patient and have reviewed the JACI Note. I performed a substantive portion of the visit including all aspects of the following. My michele findings include: History is lower abdominal pain to left lower quadrant pain. History of diverticulitis 2 years ago. No fevers or chills. Exam is afebrile. Vital signs noted. Nontoxic-appearing. Regular rate and rhythm. Lungs clear to auscultation bilaterally. Abdomen soft with mild tenderness to palpation suprapubic to left lower quadrant. No rebound or guarding. Medical Decision Making: Check labs. Check CT. No leukocytosis. No fever. CT radiology report reviewed with sigmoid diverticulitis, no abscess or perforation. Outpatient antibiotics. Return instructions reviewed. Follow-up primary care. Disposition is discharged in stable condition. Other additions or changes: [None] History & Record Review Discussion w/independent historian: Patient Lab Data Attestation: I reviewed the patient's lab results. Labs: Laboratory Results - last 24 hr 08/14/24 20:07 WBC 10.7 RBC 5.57 Hgb 16.5 Hct 48.0 MCV 86.2 MCH 29.6 MCHC 34.4 RDW Std Deviation 41.3 RDW Coeff of Felix 13.2 Plt Count 150 MPV 11.3 Immature Gran % (Auto) 0.400 Neut % (Auto) 64.7 Lymph % (Auto) 22.7 Cloud % (Auto) 7.5 Eos % (Auto) 4.1 Baso % (Auto) 0.6 Absolute Neuts (auto) 6.9 Absolute Lymphs (auto) 2.42 Nucleated RBC % 0 Sodium 136 Potassium 3.6 Chloride 102 Carbon Dioxide 21.9 Anion Gap 12 BUN 12 Creatinine 0.85 Estim Creat Clear Calc 103.35 Est GFR (MDRD) Non-Af 102 BUN/Creatinine Ratio 13.7 Glucose 171 H Calcium 8.7 Total Bilirubin 0.62 AST 15 ALT 18 Alkaline Phosphatase 125 Total Protein 7.2 Albumin 4.2 Globulin 3.1 Albumin/Globulin Ratio 1.4 Lipase 21 Radiography Diagnostic Testing: Clinical Impression(s) from Imaging Studies Abdomen/Pelvis CT 08/14/24 20:00 IMPRESSION: Findings consistent with acute sigmoid diverticulitis. No abscess formation or free air. [facility] T[facility] Chief Complaint: Abd Pain ED Midlevel Provider: Jeff Dugan ED Provider: Marino Woo Dx/Rx/DC Orders Clinical Impression: Acute diverticulitis, Abdominal pain Instructions: Diverticulosis and Diverticulitis, ED Diverticulitis Prescriptions: New ciprofloxacin HCl [Cipro] 500 mg tablet 500 mg PO BID 10 Days Qty: 20 0RF metronidazole 500 mg tablet 500 mg PO Q8H 10 Days Qty: 30 0RF No Action aspirin 81 mg Tablet,Delayed Release (Dr/Ec) 81 mg PO DAILY 30 Days Qty: 30 0RF metoprolol succinate 25 mg tablet extended release 24 hr 25 mg PO DAILY lisinopril 2.5 mg tablet 2.5 mg PO DAILY rosuvastatin 20 mg tablet 20 mg PO QHS Jardiance 10 mg tablet 10 mg PO DAILY coenzyme Q10 [CoQ-10] 100 mg capsule 100 mg PO DAILY Primary Care Provider: José Antonio Looney Referrals: José Antonio Looney MD [Primary Care Provider] - Activity Restrictions/Additional Instructions: Take the antibiotic until finished Print Language: Barbadian Disposition Disposition: Home, Self Care
[2024-08-14 20:17] LABS: Absolute Lymphocyte Count 2.42 X10^3/uL (0.83-4.51); Absolute Neutrophil Count 6.9 X10^3/uL (2.0-7.7); Basophil# 0.06 X10^3/uL; Basophil% 0.6 % (0-1); Eosinophil# 0.44 X10^3/uL; Eosinophils% 4.1 % (0-5); Hemoglobin 16.5 g/dL (13.0-16.5); Lymphocyte # 2.42 X10^3/ul (0.83-4.51); Lymphocyte % 22.7 % (19-41); Mean Corp Hgb Conc 34.4 g/dL (32-36); Mean Corpuscular Hgb 29.6 pg (27.0-32.0); Mean Corpuscular Volume 86.2 fL (80-94); Mean Platelet Vol. 11.3 fl (6.2-12.0); Monocyte% 7.5 % (0-10); NRBC Flagged by Analyzer 0 % (0-5); Neutrophil # 6.92 X10^3/uL (2.7-7.7); Neutrophil % 64.7 % (47-70); Platelet Count 150 K/mm3 (150-450); RBC Distribution Width CV 13.2 % (11.6-14.6); RBC Distribution Width SD 41.3 fl (35.1-43.9); Red Blood Count 5.57 M/mm3 (4.6-6.2); White Blood Count 10.7 K/mm3 (4.4-11.0)
[2024-08-14] MEDS: 0.9% Normal Saline (1000mL) 1,000 ML 999 ML IV (20:21)
[2024-08-14] MEDS: Ketorolac 15 MG/ML Vial IV (20:21)
[2024-08-14 20:42] LABS: ALB/GLOB Ratio 1.4 RATIO (0.9-2.4); AST(SGOT) 15 U/L (<=37); Alanine Aminotransfer ALT/SGPT 18 U/L (<=46); Albumin, Serum 4.2 g/dL (3.5-5.0); Alkaline Phosphatase 125 U/L (40-129); Anion Gap 12 (5-15); BUN 12 mg/dL (4-19); BUN/Creat Ratio 13.7 RATIO (10-20); Calcium,Total 8.7 mg/dL (7.6-11.0); Carbon Dioxide 21.9 mmol/L (21.0-32.0); Chloride 102 mmol/L (98-108); Creatinine, Serum 0.85 mg/dL (0.70-1.20); EST Glomerular Filtration Rate 102 (>60); Estimated Creatinine Clearance 103.35 ml/min (50-250); Globulin 3.1 g/dL (2.2-4.2); Glucose 171 mg/dL (70-99); Lipase 21 U/L (13-75); Potassium 3.6 mmol/L (3.3-5.1); Protein, Total 7.2 g/dL (5.9-8.4); Sodium Level 136 mmol/L (133-145); Total Bilirubin 0.62 mg/dL (0.00-1.30)
[2024-08-14 21:19] VITALS: PULSE 79; RESP 16; O2SAT 98
[2024-08-14] MEDS: Ciprofloxacin 500 MG Tablet PO (22:24)
[2024-08-14] MEDS: metroNIDAZOLE 500 MG Tablet PO (22:24)
== END 2024-08-14 22:26 | disposition home or self-care (01) ==
PROVIDERS: Nurse Practitioner; Emergency Provider Emergency Medicine; PCP Internal Medicine; Referring Provider Emergency Medicine; Visit Provider Emergency Medicine
DX: R10.32 Left lower quadrant pain (principal); I48.91 Unspecified atrial fibrillation; E11.9 Type 2 diabetes mellitus without complications; K57.92 Diverticulitis of intestine, part unspecified, without perforation or abscess without bleeding; I10 Essential (primary) hypertension; I25.10 Atherosclerotic heart disease of native coronary artery without angina pectoris; I25.2 Old myocardial infarction; Z79.82 Long term (current) use of aspirin; Z79.84 Long term (current) use of oral hypoglycemic drugs; Z79.899 Other long term (current) drug therapy; Z95.5 Presence of coronary angioplasty implant and graft; F17.200 Nicotine dependence, unspecified, uncomplicated
CPT/HCPCS: J2405; 74177; 80053; 83690; 85025; 96361; 96374; 99283; Q9967; A4216